=== PATIENT | female | born 1940 | race Caucasian/White ===

== ENCOUNTER 2019-02-16 11:24 | Inpatient (IN) ==
[2019-02-16] MEDS ORDERED: MORPHINE IV ONE ×2 (11:59→13:40)
[2019-02-16 12:44] LABS: BASO# 0.04 X1000 (0.0-0.2); BASO% 0.3 % (0.0-0.8); EOS# 0.16 X1000 (0.0-0.7); EOS% 1.3 % (0.0-10.0); HEMATOCRIT 39.4 % (37.0-47.0); HEMOGLOBIN 13.1 g/dL (12.0-16.0); IMM GRAN# 0.04 X1000 (0.0-0.04); IMM GRAN% 0.3 % (0.0-0.5); LYMPH# 1.28 X1000 (1.2-3.4); LYMPH% 10.4 % (20.5-51.1); MCH 29.8 PG (27-31); MCHC 33.2 g/dL (33-37); MCV 89.7 FL (81-99); MONO# 0.94 X1000 (0.11-0.59); MONO% 7.6 % (1.7-9.3); MPV 9.3 FL (7.4-10.4); NEUT# 9.83 X1000 (1.4-6.5); NEUT% 80.1 % (42.2-75.2); PLT 327 X1000 (130-400); RBC 4.39 XMIL (4.2-5.4); RDW 12.9 % (11.5-14.5); WBC 12.29 X1000 (4.8-10.8)
[2019-02-16 12:53] LABS: INR 0.95; PROTIME 13.4 Seconds (11.0-16.0); PTT 32.5 Seconds (22.3-41.8)
[2019-02-16 13:00] LABS: AGAP 13; ALB/GLOB RATIO 1.2; ALKALINE PHOSPHATASE 76 U/L (32-104); BUN 15 mg/dL (8-22); CALCIUM 8.9 mg/dL (8.8-10.2); CHLORIDE 102 mmol/L (98-107); COSMO 279; CREATININE 0.8 mg/dL (0.5-0.9); ESTIMATED GFR > 60; GLUCOSE 105 mg/dL (70-104); GOT 19 U/L (10-30); GPT 11 U/L (10-36); POTASSIUM 4.3 mmol/L (3.5-5.1); SODIUM 139 mmol/L (136-145); TCO2 24 mmol/L (25-35); TOTAL BILIRUBIN 0.73 mg/dL (0.20-1.00); TOTAL PROTEIN 7.3 g/dL (6.3-8.3)
--- NOTE | 2019-02-16 13:25 | Diag Imaging Result Doc PS360 ---
EXAM: CHEST-1 VIEW HISTORY: HIP FX TECHNIQUE: Chest single view COMPARISON: None. FINDINGS: The lungs are well expanded. Mild vascular distention. Mild cardiac prominence. There is a left-sided pacemaker. No pleural effusions identified. No consolidation. No pneumothorax. IMPRESSION: Mild vascular distention. Electronically signed by Nolan Bauer 02/16/2019 1:23 PM
--- NOTE | 2019-02-16 13:28 | Diag Imaging Result Doc PS360 ---
EXAM: HIP W/PELVIS BILAT 2 VIEWS HISTORY: fall, r leg shortened and externall rotated TECHNIQUE: Pelvis and bilateral hips, three views COMPARISON: None. FINDINGS: There is an intertrochanteric fracture to the right hip. Femoral head remains in the acetabulum. The femoral shaft is and superiorly placed and rotated. IMPRESSION: Intertrochanteric fracture to the right hip. Electronically signed by Nolan Bauer 02/16/2019 1:26 PM
--- NOTE | 2019-02-16 13:36 | Diag Imaging Result Doc PS360 ---
EXAM: CT HEAD W/O CONTRAST HISTORY: fall TECHNIQUE: Emergency CT head without contrast COMPARISON: 05/26/2018 FINDINGS: No parenchymal hemorrhage. No epidural or subdural hematoma. No subarachnoid hemorrhage. No mass identified on this noncontrasted exam. No hydrocephalus. No skull fracture. IMPRESSION: No hemorrhage. No injury. This exam was performed using automated exposure control, adjustment of mA or kV according to patient size, and/or use of iterative reconstruction technique. Electronically signed by Nolan Bauer 02/16/2019 1:33 PM
--- NOTE | 2019-02-16 13:43 | PROVIDER DOCUMENTATION ---
This chart was entered by Eve nAdrews Scribe, acting as scribe for Rusty Medrano MD. HPI-Musculoskeletal Pain/Inj - GENERAL Chief Complaint: Fall Stated Complaint: DIZZINESS/FALL Time Seen by Provider: 02/16/19 11:45 Source: patient - HX OF PRESENT ILLNESS-MUSKULOSKELTAL Nature of Presenting Problem: 78 y/o female presents to ED with R hip pain and R elbow pain onset just prior to arrival due to fall. Pt reports she got dizzy and fell from standing. Pt states she has hx vertigo. Pt denies loss of consciousness, but is unsure if she hit her head. Pt reports she cannot walk and cannot move her R hip. Pt is alert and oriented. Quality of Pain: reports: sharp Severity in ED: severe Onset/Duration: just prior to arrival Timing: still present Modifying Factors: worse with: movement, palpation Any recent injury?: Yes (fall) Locality of Occurance: Home Similar Symptoms Previously?: No Recently seen or treated by another doctor?: No - FALL INJURY Location of Pain/Injury: reports: upper extremity, lower extremity Pain Radiation: reports: no radiation Reason for Fall: reports: other (dizzy) Symptoms prior to fall:: reports: dizzy/lightheaded Loss of Consciousness: no loss of consciousness Injury Associated Symptoms: reports: dizziness, joint pain (R hip; R elbow), unable to bear weight, trouble walking, other (cannot move R hip) - HIP/PELVIS PAIN/INJURY Hip Pain Location: reports: hip (R) Pain Radiation: reports: no radiation Context / Method of Injury: reports: fall Associated Symptoms: reports: denies symptoms - LOWER EXTREMITY PAIN/INJURY Lower Extremities Pain: hip: right Context / Method of Injury: reports: fell Associated Symptoms: reports: denies symptoms - UPPER EXTREMITY PAIN/INJURY Extremities Pain Location: elbow: right Context / Method of Injury: reports: fell Associated Symptoms: reports: denies symptoms Review of Systems - Adult - REVIEW OF SYSTEMS - ADULT Constitutional: denies: chills, fever Eyes: reports: no symptoms reported Ears, Nose, Mouth & Throat: reports: no symptoms reported Cardiovascular: denies: chest pain, palpitations Respiratory: denies: cough, shortness of breath Gastrointestinal: denies: abdominal pain, diarrhea, nausea, vomiting Genitourinary: reports: no symptoms reported Musculoskeletal: reports: joint pain (R hip; R elbow), other (unable to walk/bear weight/move R hip). denies: back pain Integumentary: reports: no symptoms reported Neurological: reports: dizziness/vertigo. denies: seizure Psychiatric: reports: no symptoms reported Endocrine: reports: no symptoms reported Hematologic/Lymphatic: reports: no symptoms reported Allergic/Immunologic: reports: no symptoms reported All Other Systems: Reviewed and Negative Past History - Adult - PAST MEDICAL HISTORY-ADULT Review of Records: reports: Old Records Reviewed, Nursing Assessment Review, Medications Reviewed Major Childhood Illnesses: reports: denies history Cardiovascular: reports: HTN, pacemaker Respiratory: reports: denies history Gastrointestinal: reports: denies history Obstetrical/Gynecological: reports: denies history Genitourinary: reports: denies history Musculoskeletal: reports: denies history Neurological: reports: other (vertigo) Endocrine/Immune: reports: denies history Other Conditions: reports: denies history - PRIOR SURGERIES/PROCEDURES Surgical/Procedure History: reports: pacemaker, orthopedic (extremity) (leg), back/neck (kyphoplasty) - IMMUNIZATION STATUS Childhood Immunizations: See Nurse Assessment Flu Vaccine: See Nurse Assessment - FAMILY HISTORY Family History: reviewed, not pertinent - SOCIAL HISTORY Smoking: non-smoker Substance Use: none/never Alcohol Use Frequency: never Living Situation: family Physical Exam-Injury Related - Physical Exam-Injury Related Initial Vital Signs Reviewed: Yes General Appearance: appears well, alert, no apparent distress Eyes: PERRL/EOMI, pink conjunctivae Head, Ears, Nose, Mouth & Throat: normocephalic/atraumatic, moist mucous membranes, normal ENT inspection Neck: non-tender, full range of motion Respiratory: chest non-tender, lungs clear, normal breath sounds Cardiovascular: normal peripheral pulses, regular rate, rhythm Abdominal Exam: normal bowel sounds, non tender, soft Back Exam: normal inspection, no CVA tenderness Extremity: normal range of motion, normal gait, other (R elbow contusion; R leg shortened by 4 inches and externally rotated) Integumentary: normal color, warm/dry, contusion(s) (R elbow) Neurologic: grossly normal Psych/Mental Status: normal mood/affect, normal thought content, normal thought process Progress - PLAN OF CARE/RESULTS Progress/Plan/Lab Results: Vital Signs - 8 hr 02/16/19 11:49 Temperature 97.8 F Pulse Rate 60 Respiratory Rate 18 Blood Pressure 157/78 O2 Sat by Pulse Oximetry 97 Laboratory Results - last 24 hr 02/16/19 02/16/19 02/16/19 12:21 12:21 12:21 WBC 12.29 H RBC 4.39 Hgb 13.1 Hct 39.4 MCV 89.7 MCH 29.8 MCHC 33.2 RDW Std Deviation 12.9 Plt Count 327 MPV 9.3 Immature Gran % (Auto) 0.3 Neut % (Auto) 80.1 H Lymph % (Auto) 10.4 L [place] % (Auto) 7.6 Eos % (Auto) 1.3 Baso % (Auto) 0.3 Immature Gran # (Auto) 0.04 Neut # (Auto) 9.83 H Lymph # (Auto) 1.28 [place] # (Auto) 0.94 H Eos # (Auto) 0.16 Baso # (Auto) 0.04 PT INR PTT (Actin FS) Sodium 139 Potassium 4.3 Chloride 102 Carbon Dioxide 24 L Anion Gap 13 BUN 15 Creatinine 0.8 Estimated GFR/1.73 m2 > 60 BUN/Creatinine Ratio 19 Glucose 105 H Calculated Osmolality 279 Calcium 8.9 Total Bilirubin 0.73 AST 19 ALT 11 Alkaline Phosphatase 76 Creatine Kinase 255 H Troponin T Total Protein 7.3 Albumin 4.0 Globulin 3.3 Albumin/Globulin Ratio 1.2 Blood Type Antibody Screen 02/16/19 02/16/19 02/16/19 12:21 12:21 12:21 WBC RBC Hgb Hct MCV MCH MCHC RDW Std Deviation Plt Count MPV Immature Gran % (Auto) Neut % (Auto) Lymph % (Auto) [place] % (Auto) Eos % (Auto) Baso % (Auto) Immature Gran # (Auto) Neut # (Auto) Lymph # (Auto) [place] # (Auto) Eos # (Auto) Baso # (Auto) PT 13.4 INR 0.95 PTT (Actin FS) 32.5 Sodium Potassium Chloride Carbon Dioxide Anion Gap BUN Creatinine Estimated GFR/1.73 m2 BUN/Creatinine Ratio Glucose Calculated Osmolality Calcium Total Bilirubin AST ALT Alkaline Phosphatase Creatine Kinase Troponin T 0.089 Total Protein Albumin Globulin Albumin/Globulin Ratio Blood Type B POSITIVE Antibody Screen NEGATIVE Orders Category Date Time Status Saline Loc NOW Care 02/16/19 11:59 Active CHEST-1 VIEW [RAD] Stat Exams 02/16/19 12:[address] HEAD W/O CONTRAST [CT] Stat Exams 02/16/19 11:55 Completed ELBOW 2 VIEWS RIGHT [RAD] Stat Exams 02/16/19 13:31 Ordered HIP W/PELVIS BILAT 2 VIEWS [RAD] Urgent Exams 02/16/19 11:55 Completed CBC WITH DIFF [HEME] Stat Lab 02/16/19 12:21 Completed CK PROFILE [SP CHEM] Stat Lab 02/16/19 12:21 Results COMPREHENSIVE METABOLIC PANEL [CHEM] Stat Lab 02/16/19 12:21 Completed PROTIME WITH INR [COAG] Stat Lab 02/16/19 12:21 Completed PTT [COAG] Stat Lab 02/16/19 12:21 Completed TROPONIN T Stat Lab 02/16/19 12:21 Completed TYPE & SCREEN [BBK] Stat Lab 02/16/19 12:21 Completed URINALYSIS W/POSS RFLX CULT [URINALYSIS] Stat Lab 02/16/19 13:01 Ordered Morphine Med 02/16/19 11:59 Discontinued 4 mg IV NOW ONE Morphine Med 02/16/19 13:40 Once 4 mg IV NOW ONE EKG [EKG] Stat Ther 02/16/19 11:55 Ordered A/P: Intertrotranteric fracture Right side. Dr Salinas will see im am, admit to hospitalist/ vitals stable. Result Diagrams: 02/16/19 12:21 02/16/19 12:21 - XRAY 1 XRAY: Right XRAY Study: Pelvis, Hip Impression: Abnormal (FINDINGS: There is an intertrochanteric fracture to the right hip. Femoral head remains in the acetabulum. The femoral shaft is and superiorly placed and rotated. IMPRESSION: Intertrochanteric fracture to the right hip. Electronically signed by Nolan Bauer 02/16/2019 1:26 PM) 2 XRAY Study: Chest Impression: Abnormal (FINDINGS: The lungs are well expanded. Mild vascular distention. Mild cardiac prominence. There is a left-sided pacemaker. No pleural effusions identified. No consolidation. No pneumothorax. IMPRESSION: Mild vascular distention. Electronically signed by Nolan Bauer 02/16/2019 1:23 PM) - CONSULTS/PCP/HOSPITALIST Notification #1 *Consult/PCP/Hospitalist*: rheil Time Discussed: 13:42 Consult Disposition: Admit (will see im am) #2 Consult: Reinaldo Time Discussed: 13:42 Consult Disposition: Admit Departure - Departure Date of Disposition Decision: 02/16/19 Time of Disposition Decision: 13:42 DIAGNOSIS: Intertrochanteric fracture of right femur Disposition: ADMITTED INPATIENT 09 Certified Medical Emergency: Emergent Condition: Stable Additional Freetext Instructions: We have examined and treated you today on an emergency basis only. This was not a substitute for, or an effort to provide, complete medical care. In most cases, you must let your doctor check you again. Tell your doctor about any new or lasting problems. We cannot recognize and treat all injuries or illnesses in one Emergency Department visit. If you had special tests, such as X-rays or CT scans, will be reviewed by radiologist and will call you if there are any new suggestions Follow up with primary care provider in 1 to 2 days if no improvement. If you do not have a primary care provider, you need to choose one as soon as possible. Take medicines as prescribed. Monitor for any side effects or adverse events from medications. If any side effect, adverse event or rash develops, or if you suspect any other adverse reaction to the medication, then discontinue the medication immediately and contact clinic /PCP or go to the nearest ER. Narcotic meds / sedative meds instruction - patent advised not to drive, operate any machinery or go into water after taking meds as it may impair mental ability to react to the situation in an appropriate manner. Continue other current medicines. Follow up with PCP within 24-48 hours, or sooner if symptoms worsen or fail to improve. Patient / guardian verbalizes understanding of treatment plan, medication, and side effects and agrees with treatment plan. Patient leaves ER in stable condition and ambulatory state. Return to ER as needed. Discharge instructions reviewed verbally and given to patient in written form. Follow up with primary care provider. Referrals and Follow-Ups: Mundo Oleary MD [Primary Care Provider] - - Critical Care Note This patient required my direct & personal management of CC.: No Attestation - Physician/ TRAVON Attestation Patient care was provided by Advanced Practice Provider:: No The physician spent face to face time with patient:: Yes Advanced Practice Provider documentation review:: Supervising physician onsite and consulted in the evaluation and care of this patient. The physician did have a face to face encounter with the patient. This chart was documented by the indicated scribe, (Eve Andrews, Radha) and accurately reflects the services I performed and decisions made by me, Rusty Medrano MD, as attested by the provider's signature.
--- NOTE | 2019-02-16 13:50 | Diag Imaging Result Doc PS360 ---
EXAM: ELBOW 2 VIEWS RIGHT HISTORY: fall TECHNIQUE: Right elbow, two views COMPARISON: None. FINDINGS: No fracture. No dislocation. IMPRESSION: No acute bony injury. Electronically signed by Nolan Bauer 02/16/2019 1:48 PM
[2019-02-16] MEDS ORDERED: TYLENOL PO PRN (13:53)
[2019-02-16 13:56] LABS: URINE SOURCE CATH
[2019-02-16 14:00] LABS: CK-MB 7.56 ng/mL (0.0-5.0)
[2019-02-16] MEDS ORDERED: NS 1,000 ML IV SCH ×2 (14:00→15:19)
[2019-02-16 14:01] LABS: BILIRUBIN URINE NEGATIVE (NEGATIVE); BLOOD URINE NEGATIVE (NEGATIVE); COLOR YELLOW; GLUCOSE URINE NEGATIVE (NEGATIVE); KETONE URINE NEGATIVE (NEGATIVE); LEUKOCYTES URINE NEGATIVE (NEGATIVE); NITRITE URINE NEGATIVE (NEGATIVE); PH URINE 7.5; PROTEIN URINE NEGATIVE (NEGATIVE); SP GRAVITY URINE 1.011; TURBIDITY URINE CLEAR (CLEAR); UROBILINOGEN URINE NORMAL (NORMAL)
[2019-02-16 14:02] LABS: UR EPITHELIAL CELLS <10 /HPF (<10); URINE BACTERIA NEGATIVE /HPF; URINE RBC <10 /HPF (<10); URINE WBC <10 /HPF (<10)
--- NOTE | 2019-02-16 15:03 | ED EKG INTERP ---
This chart was entered by Eve Andrews Scribe, acting as scribe for Bijan Larson MD. EKG Interpretation - EKG Time of EKG reading by physician:: 14:53 EKG Read and Signed by:: Bijan Larson EKG Interpretation (*Must complete 3 of following elements*): Abnormal Rate: 72 Rhythm: NSR [place]: left QRS: LVH (with QRS widening), other (possible lateral infarct; inferior infarct) AK Interval: normal ST Wave: normal Attestation - Physician/ TRAVON Attestation Patient care was provided by Advanced Practice Provider:: No The physician spent face to face time with patient:: Yes Advanced Practice Provider documentation review:: Supervising physician onsite and consulted in the evaluation and care of this patient. The physician did have a face to face encounter with the patient. This chart was documented by the indicated scribe, (Eve Andrews Scribe) and accurately reflects the services I performed and decisions made by me, Bijan Larson MD, as attested by the provider's signature.
--- NOTE | 2019-02-16 16:39 | HISTORY AND PHYSICAL ---
PRESENTING COMPLAINT: Fall with pain to right hip. HISTORY OF PRESENTING COMPLAINT: Ms. Mattson is a 78-year-old female with a past medical history of hypertension, congestive heart failure with ejection fraction of 30% as per the patient and the family members, tachyarrhythmia status post pacemaker implantation. The patient refers to have been in her usual state of health until early this morning. She got up to go and do something in the kitchen, and she just felt dizzy, lost her balance, and fell down and sustained a hit to the right hip. She could not immediately get up off the floor. She was down there for a couple of minutes until the family members came and saw her on the floor. They called the ambulance, and she was brought into the emergency room where she was evaluated. Initial x-ray of the hip and pelvis showed an intertrochanteric fracture to the right hip. The patient is being admitted for evaluation and intervention by Orthopedics. PAST MEDICAL HISTORY: 1. Hypertension. 2. Congestive heart failure with ejection fraction of 30%. 3. Tachyarrhythmia. The patient is status post pacemaker. 4. Osteoarthritis. 5. GERD. 6. Recurrent episode of vertigo. MEDICATIONS: 1. Aspirin 81 mg. 2. Carvedilol 12.5 b.i.d. 3. Famotidine 40 mg p.o. daily. 4. Lisinopril 5 mg p.o. daily. However, Ms Mattson refers that she had stopped taking lisinopril for the past 1 week. 5. Meclizine 25 mg p.o. daily p.r.n. 6. CoQ10, 200 mg daily. 7. Celexa 20 mg p.o. daily. ALLERGIES: Sulfa medications. PAST SURGICAL HISTORY: 1. Appendectomy. 2. Back surgery. 3. Right distal femur surgery. 4. Pacemaker implant. SOCIAL HISTORY: Patient is currently . Lives with her who has advanced Parkinson disease and is bedbound. Ms. Mattson is the one who provides for her . Ms. Mattson is for most part very active. She does all her ADLs by herself. She denies any alcohol use and no tobacco product use. REVIEW OF SYSTEMS: A 14-point review of system conducted with Ms. Mattson is unremarkable except what we have in the HPI. Specifically, Ms. Mattson denies any chest pain. No shortness of breath. No abdominal pain. No diarrhea. No headaches. PHYSICAL EXAMINATION: VITAL SIGNS: The patient blood pressure 157/94, pulse is 64, respirations 18, temperature is 97.6 degrees. Patient is saturating 98% on 2 L of nasal cannula. GENERAL: Ms. Mattson is a 78-year-old, well-built, female. BMI is 39.3. She was in bed. She was not in any cardiopulmonary distress. HEENT: Mucosa is slightly dry. Anicteric. Acyanotic. Head is normocephalic, atraumatic. NECK: Supple. There was no JVD. Trachea is midline. There is no thyromegaly. RESPIRATORY: There is good air entry bilateral. No crepitations. No rhonchi. No accessory muscle use. CARDIOVASCULAR: Regular rate and rhythm. No murmurs, no rubs, no gallops. Maiden beat is at 5th intercostal space, midclavicular line. There is a pacemaker generator pocket on the left anterior chest wall. GI: Abdomen is soft, nontender. Bowel sounds present. No hepatosplenomegaly palpated. INGUINAL REGION: Unremarkable. : Unremarkable. EXTREMITIES: There is no pedal edema. Distal pulses are present bilaterally. The right lower extremity is shortened, and it is externally rotated. ORDER ENTRY ADMINISTRATOR: Patient is awake, alert, and oriented x4. Executive function seems to be for the most part unremarkable for her age. Motor is 5/5 in all extremities except the right lower extremity; patient is able to move the toes but not able to lift the lower extremity itself because of the fracture. Sensation is intact in all extremities. Reflexes are normal. PSYCHIATRIC: Ms. Mattson is very cooperative with during the encounter. She has very good understanding and good judgment. LABORATORY DATA: WBC is 12.29, hemoglobin is 13.1, platelet count of 337,000. Chemistry is also reviewed and is completely unremarkable. Urinalysis is also normal. IMAGING STUDIES: A CT scan of the head showed no hemorrhage, no injury. A hip pelvic x-ray shows intertrochanteric fracture to the right hip. A chest x-ray shows mild vascular distention. No pneumothorax. No other abnormality. An elbow x-ray shows no abnormality. An EKG shows normal sinus rhythm with a rate of about 75. There is left axis deviation. There is a ventricular paced rhythm noted. In general, Ms. Mattson is a 78-year-old, relatively healthy lady with some chronic comorbidities who seems to have been in her regular state of health. She sustained a mechanical fall and has a fracture to the right hip. She has been admitted for orthopedic evaluation and intervention at this time. ASSESSMENT: 1. Status post mechanical fall resulting into a right intertrochanteric displaced fracture. The patient will be evaluated by orthopedics today. I understand there is a plan for surgical intervention tomorrow. 2. History of congestive heart failure. The patient refers that her ejection fraction is about 30%. We do not have any previous documentation in our system. She normally follows up with Cardiology in [place]. The patient at this point denies any symptoms associated with congestive heart failure. We will, however, recommend that the patient is seen by Cardiology before surgery because of her risks. 3. History of atrial fibrillation currently rate controlled. The patient is status post pacemaker, and she is also on carvedilol. 4. Hypertension is controlled. 5. Mild clinical volume depletion. Patient is on gentle hydration. 6. Severe constipation on imaging studies. We will start the patient on bowel regimen. PLAN: 1. So in general, I think Ms. mattson is clinically stable. We are going to admit her onto the surgical floor under telemonitoring. Orthopedics have already been consulted. We will also consult Cardiology for perioperative cardiac evaluation because of the fact that she has ejection fraction of 30%, and she also has a pacemaker. 2. I have also discussed the possibility of rehab placement after the surgical intervention. I have discussed my plan with the 3 family members who were at the bedside at the time of the encounter and also with the patient. All of them are in agreement. cc: Dean Atkins MD
[2019-02-16] MEDS: ZOFRAN IV PRN ×2 (17:29→20:13)
[2019-02-16] MEDS: MORPHINE IV PRN ×3 (17:30→23:18)
[2019-02-16] MEDS: MIRALAX PO SCH (17:45)
[2019-02-16] MEDS: NORCO-7.5 PO PRN (21:08)
[2019-02-16 22:16] LABS: URINE SOURCE CATH
[2019-02-16 22:22] LABS: BILIRUBIN URINE NEGATIVE (NEGATIVE); BLOOD URINE MODERATE (NEGATIVE); COLOR YELLOW; GLUCOSE URINE NEGATIVE (NEGATIVE); KETONE URINE 40 mg/dL (NEGATIVE); LEUKOCYTES URINE NEGATIVE (NEGATIVE); NITRITE URINE NEGATIVE (NEGATIVE); PH URINE 5.5; PROTEIN URINE TRACE mg/dL (NEGATIVE); TURBIDITY URINE CLEAR (CLEAR); UROBILINOGEN URINE NORMAL (NORMAL)
[2019-02-16 22:24] LABS: UR EPITHELIAL CELLS <10 /HPF (<10); URINE BACTERIA NEGATIVE /HPF; URINE WBC <10 /HPF (<10)
[2019-02-17] MEDS: NORCO-7.5 PO PRN ×2 (01:01→04:29)
[2019-02-17] MEDS: MORPHINE IV PRN (02:05)
[2019-02-17 05:55] LABS: BASO# 0.02 X1000 (0.0-0.2); BASO% 0.2 % (0.0-0.8); EOS# 0.17 X1000 (0.0-0.7); EOS% 1.9 % (0.0-10.0); HEMATOCRIT 35.8 % (37.0-47.0); HEMOGLOBIN 11.7 g/dL (12.0-16.0); LYMPH# 1.82 X1000 (1.2-3.4); LYMPH% 20.4 % (20.5-51.1); MCH 29.8 PG (27-31); MCHC 32.7 g/dL (33-37); MCV 91.3 FL (81-99); MONO# 1.33 X1000 (0.11-0.59); MONO% 14.9 % (1.7-9.3); MPV 9.2 FL (7.4-10.4); NEUT# 5.59 X1000 (1.4-6.5); NEUT% 62.6 % (42.2-75.2); PLT 292 X1000 (130-400); RBC 3.92 XMIL (4.2-5.4); RDW 13.1 % (11.5-14.5); WBC 8.93 X1000 (4.8-10.8)
[2019-02-17 06:13] LABS: INR 1.09
[2019-02-17 06:14] LABS: PTT 36.2 Seconds (22.3-41.8)
[2019-02-17 06:23] LABS: AGAP 10; ALB/GLOB RATIO 1.3; ALBUMIN 3.6 g/dL (3.5-5.0); ALKALINE PHOSPHATASE 68 U/L (32-104); BUN 15 mg/dL (8-22); CALCIUM 8.5 mg/dL (8.8-10.2); CHLORIDE 103 mmol/L (98-107); COSMO 279; CREATININE 0.7 mg/dL (0.5-0.9); ESTIMATED GFR > 60; GLUCOSE 102 mg/dL (70-104); GOT 25 U/L (10-30); GPT 9 U/L (10-36); POTASSIUM 3.8 mmol/L (3.5-5.1); SODIUM 139 mmol/L (136-145); TCO2 26 mmol/L (25-35); TOTAL BILIRUBIN 1.02 mg/dL (0.20-1.00); TOTAL PROTEIN 6.4 g/dL (6.3-8.3)
[2019-02-17] MEDS: ZOFRAN IV PRN (08:55)
[2019-02-17] MEDS: MIRALAX PO SCH (08:55)
--- NOTE | 2019-02-17 09:31 | ORTHOPAEDICS CONSULTATION ---
DATE: 02/17/2019 CHIEF COMPLAINT: Right hip pain. HISTORY OF PRESENT ILLNESS: This is a 78-year-old female, household ambulator with history of coronary disease and a pacemaker. Reports a fall yesterday at home. She was evaluated in the emergency room and noted to have a right intertrochanteric hip fracture. She was admitted by the hospitalist service for surgical intervention and clearance. She complains of pain and tenderness about the right hip. She denies any other injury. PAST MEDICAL HISTORY: Significant for heart failure with ejection fraction of 30, arrhythmia with a pacemaker, osteoarthritis, reflux, vertigo and hypertension. CURRENT MEDICATIONS: Include 1. Aspirin. 2. Carvedilol. 3. Famotidine. 4. Lisinopril. 5. Meclizine. 6. Celexa. 7. Co Q. PAST SURGICAL HISTORY: is status post surgery to the right femur in the past, as well as a pacemaker implant, back surgery and appendectomy. SOCIAL HISTORY: Is , resides with who has advanced Parkinson's and is bedbound. She is at best a household ambulator, is unsteady with her gait. She has a daughter in attendance. PHYSICAL EXAMINATION: Reveals shortening of external rotation of the right lower extremity with tenderness about the hip. Compartments are soft. She appears to be motor and sensory intact. There is good capillary refill. She is nontender over the left lower extremity and both upper extremities. Spine has some diffuse tenderness but no point tenderness. IMAGING: X-rays reviewed show a displaced intertrochanteric right hip fracture. ASSESSMENT: 1. Right intertrochanteric hip fracture. 2. Multiple medical comorbidities. PLAN: The patient is to be evaluated by Cardiology prior to surgery. We will plan on proceeding with her surgery tomorrow pending cardiology clearance. She can eat today. I have discussed risks and benefits of surgery including loss of life or limb, damage to tendon, nerve, or blood vessel, failure of fixation, blood clots, and other imponderables. She understands. No guarantees, is willing to proceed. We will plan on surgical fixation of her right hip tomorrow. cc: Issa Palomo MD
[2019-02-17 09:37] LABS: CK INDEX 1.9 (0.0-2.5); CK-MB 8.61 ng/mL (0.0-5.0)
--- NOTE | 2019-02-17 10:04 | CARDIOLOGY CONSULTATION ---
DATE: 02/17/2019 CONSULTATION REQUESTED BY: Hospitalist service. REASON FOR CONSULTATION: Preoperative cardiac evaluation.history of CHF. BRIEF HISTORY: Ms. Mattson is a 78-year-old female who presented to the hospital yesterday at about 1155 in the morning. The patient apparently had been feeling dizzy at home and as she made a turn while standing to try to turn off a light switch. She just lost her balance and fell on her buttocks. Her daughter, who had been out to breakfast with her children, found her lying on the floor. The patient had not lost consciousness. She did not have any chest pain or dyspnea before or after the episode. When they brought her to the ER, they did an x-ray that showed intertrochanteric fracture of the right hip. The patient has been scheduled for hip surgery emergently. Her EKG shows activity of a biventricular pacemaker with atrial sensing. The rate is 72 beats per minute. No ischemic ST changes noted. Initial CPK is elevated at 255. CK index is 3%. MB fraction is 7.56. Troponin is 0.089. This probably reflects the musculoskeletal trauma of the fall. Her urinalysis shows moderate blood in the urine. Her BUN and creatinine were normal. Her chest x-ray shows clear lungs with some vascular distention. PAST HISTORY: Positive for nonischemic dilated cardiomyopathy. The patient has received a biventricular ICD device. She has hypertension. She has mild to moderate mitral regurgitation. She has dyslipidemia. The patient has undergone heart catheterization in the past, 03/06/2017, that showed normal coronaries. Her pulmonary pressure was basically normal. The patient had an echocardiogram on follow-up in September 2017 that revealed ejection fraction of 50%. SURGICAL HISTORY: Positive for implantation of biventricular device in 07/30/2017 for primary prevention. It is [employer] [id number]. This is a [employer] device. Her surgical history is positive for kyphoplasty and also for leg surgery, appendectomy. SOCIAL HISTORY: She lives with who is bedbound because of advanced Parkinson disease. They have around the clock sitters. However, on the day of the accident, no sitter was around. Her history negative for smoking or alcohol use. HOME MEDICATIONS: Aspirin 81 daily, calcium acetate 3 tablets daily, Coreg 12.5 twice a day, Celexa 20 mg daily, cyclobenzaprine 10 mg daily, famotidine 40 mg at bedtime, glucosamine 1 tablet at bedtime, lisinopril 10 mg daily, meclizine 12.5 two times a day, Co Q10 200 daily, glucosamine daily. ALLERGIES: Sulfa drugs. REVIEW OF SYSTEMS: The patient has a tendency to fall. Her children said that she had fallen before Mother's Day, which is about 2 weeks ago. She has episodes of dizziness. No chest pains. No issues with cardiopulmonary system otherwise. No previous strokes. No psychiatric history. No hematological disorder. No gastrointestinal problems. No genitourinary issues. No skin issues. No immunological disorder. No active cancer. Family History : non contributory. PHYSICAL EXAMINATION: Vitals: Blood pressure is 90/52, temperature 97.6 degrees, pulse 72, respirations 12. General: She is awake, alert. She is sedated because of her fracture. They have been giving her morphine. HEENT: Unremarkable. Chest: Clear to auscultation and percussion. Heart: Heart sounds regular and rhythmic. I do not hear any definite gallop or murmur. Abdomen: Obese, nontender. Extremities: Showed good pulses. No peripheral edema. There is a deformity in the position of the right leg because of the fracture. Neurologic: She follows commands. Moves 4 extremities. BLOOD WORK: Hemoglobin is 11.7, hematocrit 35.8, white cell count 8930. PT/INR is normal. Albumin is 3.6. IMPRESSION: 1. Patient who presented with a fall and a broken right hip. 2. Patient who has a nonischemic dilated cardiomyopathy. She is status post biventricular AICD."Stable" chronic systolic heart failure. s/p Implantation of Biventricular ICD. 3. History of hypertension. 4. Dizziness, tendency to fall, poor balance. RECOMMENDATIONS: At this time from Cardiology, I really do not find any contraindication to proceeding with hip surgery. She has no coronary disease. She may have some chronic congestive heart failure, which is probably compensated. I am going to check a pro BNP level and serial cardiac enzymes as well as serial EKGs. We have just repeated the EKG this morning at 9:28 in the morning and it shows no changes when compared to the one from yesterday at 2:53 in the afternoon. At this time, I think she is safe to proceed with the hip surgery, and I will be around to intervene should her condition change. cc: Yovanny Cloud MD MTDD
[2019-02-17] MEDS ORDERED: FLEXERIL PO PRN (10:14)
[2019-02-17] MEDS ORDERED: PEPCID PO PRN (10:14)
[2019-02-17] MEDS ORDERED: AMIDATE ONE (10:18)
[2019-02-17] MEDS ORDERED: XYLOCAINE-MPF 2% ONE (10:19)
[2019-02-17] MEDS ORDERED: NEOSPORIN G.U. IRRIGANT ONE (10:29)
[2019-02-17] MEDS ORDERED: KEFZOL 1 GM/D5W 2 GM/100 ML IVPB ONE (10:29)
[2019-02-17] MEDS ORDERED: QUELICIN (DOSE) ONE (11:06)
[2019-02-17] MEDS ORDERED: EPHEDRINE ONE (11:08)
[2019-02-17] MEDS ORDERED: ZOFRAN ONE (11:31)
[2019-02-17] MEDS ORDERED: DECADRON ONE (11:31)
[2019-02-17] MEDS ORDERED: NS 1,000 ML ONE (12:00)
[2019-02-17] MEDS: DILAUDID ONE ×2 (12:00→12:06)
[2019-02-17] MEDS: TORADOL ONE (12:17)
[2019-02-17] MEDS: OFIRMEV 1000 MG/ISOTONIC SOLN 1,000 MG/100 ML BOTTLE ONE ×2 (12:20→13:07)
[2019-02-17] MEDS ORDERED: ZOFRAN IV PRN (12:21)
[2019-02-17] MEDS ORDERED: MORPHINE IV PRN (12:21)
[2019-02-17] MEDS ORDERED: MILK OF MAGNESIA PO PRN (12:21)
[2019-02-17] MEDS ORDERED: HALDOL IV PRN (12:30)
[2019-02-17] MEDS: NS 1,000 ML IV SCH ×2 (13:00→20:32)
--- NOTE | 2019-02-17 13:02 | OPERATIVE NOTE ---
PROCEDURE DATE: 02/17/2019 PREOPERATIVE DIAGNOSIS: Right intertrochanteric hip fracture. POSTOPERATIVE DIAGNOSIS: Right intertrochanteric hip fracture. PROCEDURE PERFORMED: Trochanteric fixation nail fixation of right hip. SURGEON: Yulissa Palomo MD. SHEET METAL PRODUCTION WORKER: None. ANESTHESIA: General. COMPLICATIONS: None. DESCRIPTION OF PROCEDURE IN DETAIL: A 78-year-old who presents for surgical stabilization of a right intertrochanteric hip fracture. Risks, benefits, and no guarantees were discussed, and she is willing to proceed. She was taken to the operating room and satisfactory anesthesia obtained. The right hip was prepped and draped in the usual sterile fashion. A time-out was taken to confirm operative site, procedure, and patient. Eve table was used to provide gentle longitudinal traction, alignment of the fracture. A lateral incision was made after a prep and drape above the lesser trochanter and a guide pin placed down through the tip of the trochanter down the intramedullary canal. An intramedullary reamer was used to establish a portal and the guidewire removed. A ball-tipped guidewire advanced down the shaft of the femur. A 340 x 11 nail was selected. The guidewire was reamed with a 12 mm reamer. The nail was then inserted over the guidewire and fully seated, and the guidewire removed. An accessory lateral guide was used to place a guide pin through the nail through an accessory lateral incision and up the central aspect of the femoral neck and femoral head. A 105 length helical blade was passed over this guidewire after reaming. This was locked in place and the proximal guide removed. The C-arm was used to verify accurate proximal alignment and surgical fixation. The distal screw was placed through the dynamic slot using the C-arm guidance through an accessory lateral portal. A 44 length screw was placed across the nail and bone with bicortical fixation. Care was taken to maintain proper rotation and leg length during the fixation. Afterwards, all wounds were irrigated and closed in layers with 2-0 Vicryl and andrea. Sterile dressings were applied. She was recovered from anesthesia and transferred to the recovery room in stable condition. No intraoperative complications were noted. Instrument count and sponge count were correct at the time of closure. cc: Issa Palomo MD
--- NOTE | 2019-02-17 15:51 | PROGRESS NOTE ---
DATE: 02/17/2019 SUBJECTIVE: Patient has no major complaints. OBJECTIVE: Blood pressure 90/53, heart rate 88, respiratory rate 16, temperature 98.1 degrees, and 96% on 2 L.Cardiovascular: Regular rate and rhythm. Pulmonary: Bilateral breath sounds clear to auscultation. GI: Soft, nontender, and nondistended. Bowel sounds are positive. LABORATORY DATA: White count 8.9, hemoglobin and hematocrit 11 and 35, and platelets 292,000. Creatinine was okay. Troponin though not quite sure when this was done, was slightly elevated. I guess they got one done yesterday, and then the one done this morning preop was 0.102. I did not get reported on it until around 15:00 which is after her surgery. In any case, the EKG was unremarkable. She is asymptomatic. PROBLEM LIST: 1. Right hip fracture intertrochanteric displaced fracture. She is status post ORIF. Cardiology was consulted for preop clearance which has transpired. 2. Atrial fibrillation is stable. 3. Elevated troponin of undetermined significance. She has already had surgery, so I am not quite sure how much that is going to affect things, but Cardiology is following and they will have to re-evaluate. I did repeat her level. I requested an echo tomorrow just to ensure there has not been any big change in her cardiac function. I do not see that she has had a recent echo, at least not here. 4. Disposition: She will likely need rehab when she has stabilized. cc: Surendra Hunt MD
[2019-02-17] MEDS: OXY IR PO PRN ×2 (16:26→20:33)
[2019-02-17 16:34] LABS: CK INDEX 2.1 (0.0-2.5); CK-MB 15.76 ng/mL (0.0-5.0)
[2019-02-17] MEDS: KEFZOL 1 GM/D5W 1 GM/50 ML IVPB IV SCH ×2 (17:25→18:24)
[2019-02-17] MEDS: COLACE PO SCH (20:30)
[2019-02-17] MEDS: TYLENOL PO SCH (20:33)
[2019-02-17] MEDS: COREG PO SCH (20:34)
[2019-02-17] MEDS ORDERED: BENADRYL CREAM TOP PRN (22:01)
[2019-02-18] MEDS: GLUCOSAMINE 500 MG/CHONDROITIN 400 MG PO SCH ×2 (00:24→20:13)
[2019-02-18] MEDS: KEFZOL 1 GM/D5W 1 GM/50 ML IVPB IV SCH ×2 (02:36→11:55)
[2019-02-18] MEDS: OXY IR PO PRN ×3 (02:42→23:09)
[2019-02-18] MEDS: TYLENOL PO SCH ×3 (06:16→23:10)
[2019-02-18] MEDS: XARELTO PO SCH (06:16)
[2019-02-18 06:20] LABS: BASO# 0.01 X1000 (0.0-0.2); BASO% 0.1 % (0.0-0.8); EOS# 0.02 X1000 (0.0-0.7); EOS% 0.2 % (0.0-10.0); HEMOGLOBIN 9.8 g/dL (12.0-16.0); IMM GRAN# 0.03 X1000 (0.0-0.04); IMM GRAN% 0.3 % (0.0-0.5); LYMPH# 0.82 X1000 (1.2-3.4); LYMPH% 7.7 % (20.5-51.1); MCH 29.2 PG (27-31); MCHC 31.6 g/dL (33-37); MCV 92.3 FL (81-99); MONO# 1.25 X1000 (0.11-0.59); MONO% 11.7 % (1.7-9.3); MPV 8.7 FL (7.4-10.4); NEUT# 8.55 X1000 (1.4-6.5); PLT 233 X1000 (130-400); RBC 3.36 XMIL (4.2-5.4); RDW 12.9 % (11.5-14.5); WBC 10.68 X1000 (4.8-10.8)
[2019-02-18 06:54] LABS: AGAP 10; BUN 20 mg/dL (8-22); CALCIUM 7.8 mg/dL (8.8-10.2); CHLORIDE 103 mmol/L (98-107); COSMO 279; CREATININE 0.8 mg/dL (0.5-0.9); ESTIMATED GFR > 60; GLUCOSE 120 mg/dL (70-104); POTASSIUM 4.3 mmol/L (3.5-5.1); SODIUM 138 mmol/L (136-145); TCO2 25 mmol/L (25-35)
--- NOTE | 2019-02-18 07:35 | EKG Report ---
Test Performed on : 02/17/2019 09:28:19 AM Test Reason : chest pain/elevated cardiac enzymes Blood Pressure : / mmHG Vent. Rate : 067 BPM Atrial Rate : 067 BPM P-R Int : 132 ms QRS Dur : 112 ms QT Int : 534 ms P-R-T Axes : 063 -62 -39 degrees QTc Int : 564 ms Normal sinus rhythm. Left axis deviation Moderate voltage criteria for LVH, may be normal variant Possible Lateral infarct (cited on or before 16-FEB-2019) Inferior infarct (cited on or before 16-FEB-2019) Prolonged QT Abnormal ECG When compared with ECG of 16-FEB-2019 17:10, (Unconfirmed) aberrant conduction. is no longer present Questionable change in initial forces of Lateral leads QT has lengthened Confirmed by Ramu YANEZ, Harrison Salomon ([id number]) on 02/18/2019 12:42:32 PM
--- NOTE | 2019-02-18 07:44 | EKG Report ---
Test Performed on : 02/16/2019 5:10:34 PM Test Reason : fall Blood Pressure : / mmHG Vent. Rate : 074 BPM Atrial Rate : 074 BPM P-R Int : 128 ms QRS Dur : 120 ms QT Int : 442 ms P-R-T Axes : 052 -61 065 degrees QTc Int : 490 ms Sinus rhythm. with premature atrial complexes. with aberrant conduction. Left axis deviation Left ventricular hypertrophy with QRS widening Possible Lateral infarct (cited on or before 16-FEB-2019) Inferior infarct (cited on or before 16-FEB-2019) Abnormal ECG When compared with ECG of 16-FEB-2019 14:53, (Unconfirmed) aberrant conduction. is now present Confirmed by Ramu YANEZ, Harrison Salomon ([id number]) on 02/18/2019 12:41:58 PM
--- NOTE | 2019-02-18 07:45 | EKG Report ---
Test Performed on : 02/16/2019 2:53:50 PM Test Reason : surg clearance Blood Pressure : / mmHG Vent. Rate : 072 BPM Atrial Rate : 072 BPM P-R Int : 130 ms QRS Dur : 118 ms QT Int : 438 ms P-R-T Axes : 061 -58 099 degrees QTc Int : 479 ms Normal sinus rhythm. Left axis deviation Left ventricular hypertrophy with QRS widening Possible Lateral infarct , age undetermined Inferior infarct , age undetermined Abnormal ECG When compared with ECG of 10-NOV-2017 11:13, [id number]-[id number] is no longer present Unconfirmed Result
[2019-02-18 07:53] LABS: CK INDEX 2.4 (0.0-2.5); CK-MB 15.64 ng/mL (0.0-5.0)
[2019-02-18] MEDS: NS 1,000 ML IV SCH (08:40)
[2019-02-18] MEDS: PRINIVIL PO SCH (08:44)
[2019-02-18] MEDS: FERROUS SULFATE PO SCH (08:44)
[2019-02-18] MEDS: COREG PO SCH ×2 (08:45→20:13)
[2019-02-18] MEDS: FLONASE NAS SCH (08:45)
[2019-02-18] MEDS: PHOSLO PO SCH (08:45)
[2019-02-18] MEDS: CELEXA PO SCH (08:46)
[2019-02-18] MEDS: COENZYME Q10 PO SCH (08:46)
[2019-02-18] MEDS: ASPIRIN PO SCH (08:46)
--- NOTE | 2019-02-18 08:49 | CARDIOLOGY PROGRESS NOTE ---
DATE: 02/18/2019 CHIEF COMPLAINT: Hip pain. SUBJECTIVE: Ms. Mattson underwent orthopedic surgery on February 17. Dr. Palomo performed a trochanteric fixation of the right hip. The patient is fully awake. She is actually talking on the cell phone with her sister. She has obviously postoperative pain but she denies having chest discomfort or shortness of breath. Her telemetry shows no arrhythmia. Her troponin level has been rechecked this morning and it has dropped to 0.047 which is falling now back into the normal range/dickinson zone. EKG done yesterday showed no acute changes and today is pending. VITAL SIGNS: Blood pressure 108/51, temperature 97.9 degrees, pulse 81, respirations 19. GENERAL: The patient is awake, alert, oriented. No distress. HEENT: Unremarkable. CHEST: Clear to auscultation and percussion. HEART: Sounds regular and rhythmic. I do not hear a gallop or murmur. ABDOMEN: Nontender. EXTREMITIES: Showed good pulses. No edema. NEUROLOGICAL: Follows commands. Moves 4 extremities. BLOOD WORK: From this morning, hemoglobin 9.8, hematocrit 31%. That has dropped 2 points since yesterday. Sodium 138, potassium 4.3, BUN 20, creatinine 0.8. CPK has dropped from 756 to 651. CKMB fraction is slightly drifting down to 15.64 ng/mL. IMPRESSION: 1. Patient who suffered a fall from essentially unsteadiness and dizziness, suffering fracture of the right hip. 2, Status post internal fixation of the right hip fracture postoperative day 1. 3. Dilated nonischemic cardiomyopathy. 4. Status post biventricular ICD implantation. 5. History of hypertension. RECOMMENDATIONS: At this point in time, patient is basically free of any acute cardiac problems. She may go on with her current therapy as outlined by Dr. Paul Lopez who is her swing tender. I understand she is going to be taken to rehabilitation for convalescence of her fracture. Her medications need to be gradually reinstated according to her blood pressure tolerance. She is supposed to be on lisinopril and beta blockers. They will be reinstated gradually as she progresses with her rehabilitation. I had a leila discussion with her and the daughter and told them that she is likely to have more falls in the future and she definitely needs to use a walker 100% of the time to prevent this or help preventing them. She says that she is going to remember that from now on. She will follow up with Dr. Lopez and her established doctors. cc: Yovanny Cloud MD
--- NOTE | 2019-02-18 10:04 | EKG Report ---
Test Performed on : 02/18/2019 09:32:13 AM Test Reason : abnormal cardiac enzymes Blood Pressure : / mmHG Vent. Rate : 088 BPM Atrial Rate : 088 BPM P-R Int : 122 ms QRS Dur : 120 ms QT Int : 414 ms P-R-T Axes : 037 -58 043 degrees QTc Int : 500 ms Sinus rhythm. with occasional premature ventricular complexes. Left axis deviation Left ventricular hypertrophy with QRS widening Possible Lateral infarct (cited on or before 16-FEB-2019) Inferior infarct (cited on or before 16-FEB-2019) Abnormal ECG When compared with ECG of 17-FEB-2019 09:28, (Unconfirmed) premature ventricular complexes. are now present T wave inversion no longer evident in Inferior leads QT has shortened Confirmed by Ramu YANEZ, Harrison Salomon ([id number]) on 02/18/2019 12:43:18 PM
[2019-02-18] MEDS: TORADOL ONE (11:45)
[2019-02-18] MEDS: MIRALAX PO SCH (11:46)
--- NOTE | 2019-02-18 15:08 | PROGRESS NOTE ---
DATE: 02/18/2019 SUBJECTIVE: This morning, Ms. Mattson refers to be doing fairly okay. Denies any new complaints. Still has some pain in the right hip. OBJECTIVE: Ms. Mattson is a 78-year-old female. She was in bed, no distress. Mucosa is pink and moist. Anicteric. Acyanotic. Her current vitals: Blood pressure is 102/59, pulse of 78, respirations 15, temperature 97.7 degrees. On general exam, Ms. Mattson's neck is supple. No JVD.Chest: Good air entry bilateral. There were no crepitations. No rhonchi. Cardiovascular: Regular rate and rhythm. There are no murmurs, no rubs, no gallops. There is a generator pocket on the left anterior chest wall. Gastrointestinal: Abdomen is soft, nontender. Bowel sounds are present. No hepatosplenomegaly. Extremities: No pedal edema. Distal pulses present. The right lower extremity is still externally rotated. There is a new surgical scar on the hip level, which is covered with sterile dressing. Central Nervous System: Patient is awake, alert. DIAGNOSTIC STUDIES: WBC 10.68, hemoglobin is 9.8, platelet count of 233,000. Chemistry is also reviewed and unremarkable. ASSESSMENT: 1. Status post mechanical fall resulting into a right intertrochanteric displaced fracture. Patient is status post trochanteric nail fixation of the right hip by Dr. Palomo. Today is day 1 postoperatively. Patient seems to be doing remarkably well. She was evaluated by Physical Therapy today. 2. History of congestive heart failure due to nonischemic cardiomyopathy with ejection fraction of 30%. The patient follows up with Dr. Paul Lopez in [place] and was seen over here by Dr. Cloud. The patient is currently asymptomatic. 3. Status post biventricular implantable cardioverter-defibrillator implantation. Noted. 4. Hypertension, controlled. 5. Constipation, improved. 6. Mild clinical volume depletion, improved. In general Ms. Mattson is day 1 postoperative. Seems to be doing fairly okay. Had physical therapy evaluation today. There is a plan for her to be discharged to rehabilitation. I think she has chosen [facility]. We will be waiting for manager social work arrangements to get her there. The patient has been evaluated by Cardiology today, as well, and no need for any acute intervention. cc: Dean Atkins MD
[2019-02-18] MEDS: DILAUDID ONE (17:25)
--- NOTE | 2019-02-18 18:30 | ORTHOPAEDICS PROGRESS NOTE ---
DATE: 02/18/2019 SUBJECTIVE DATA: Ms. Mattson is seen on postop day 1 of her right TFN placement. She reports she is doing well at this time. She has been walking on physical therapy. She reports her pain is a 3/10 at this time. OBJECTIVE DATA: There is good capillary refill on the right lower extremity. There is negative Homans sign. There is good sensation. The patient is able to flex her quadriceps muscles without difficulty. Vital signs are stable. ASSESSMENT: Right intertrochanteric hip fracture with trochanteric fixation nail placement. PLAN: We plan on checking on Ms. Mattson in the morning for a final time. She will likely be discharged to rehab per her request. She will need to have her andrea removed in 10 days. We will check back on her in the morning. Dictated by GE Enciso for Issa Palomo MD cc: GE Enciso MD
[2019-02-18] MEDS: COLACE PO SCH (20:12)
--- NOTE | 2019-02-18 23:47 | ECHO REPORT ---
ORDER DATE: 02/18/2019 MEASUREMENTS: Septal thickness 0.8, left ventricular internal diameter diastole 4.2, left atrium 4.0. SUMMARY: 1. Technically difficult study due to limited acoustic window quality. Intravenous echocardiogram contrast agent Optison was utilized to enhance endocardial definition. 2. The aortic valve is trileaflet and opens normally on 2-dimensional images. Peak gradient across the aortic valve is approximately 10 mmHg. Mitral and tricuspid valves are without evidence of structural abnormality while pulmonic valve is not well demonstrated. There is trace mitral regurgitation and trace tricuspid regurgitation. The aortic root is normal in size. 3. Normal left ventricular dimensions suggested. Estimated left ejection fraction appears to be at least 60%. No regional wall motion abnormality is evident. Left atrium, right atrium and right ventricle are normal in size with grossly preserved right ventricular systolic function. There appears to be a pacemaker lead in the right ventricle. 4. No pericardial effusion. 5. Inferior vena cava not well demonstrated. cc: MD Surendra Gonzales MD
[2019-02-19] MEDS: OXY IR PO PRN ×2 (05:28→12:38)
[2019-02-19] MEDS: XARELTO PO SCH (05:29)
[2019-02-19] MEDS: TYLENOL PO SCH ×2 (05:29→14:19)
--- NOTE | 2019-02-19 06:55 | EKG Report ---
Test Performed on : 02/19/2019 06:23:48 AM Test Reason : abnormal cardiac enzymes Blood Pressure : / mmHG Vent. Rate : 074 BPM Atrial Rate : 074 BPM P-R Int : 144 ms QRS Dur : 122 ms QT Int : 452 ms P-R-T Axes : 062 -67 058 degrees QTc Int : 501 ms Normal sinus rhythm. Left axis deviation Left ventricular hypertrophy with QRS widening Cannot rule out Septal infarct , age undetermined Lateral infarct (cited on or before 16-FEB-2019) Inferior infarct (cited on or before 16-FEB-2019) Abnormal ECG When compared with ECG of 18-FEB-2019 09:32, premature ventricular complexes. are no longer present Questionable change in initial forces of Lateral leads Questionable change in initial forces of Inferior leads Confirmed by Ramu YANEZ, Harrison Salomon ([id number]) on 02/20/2019 6:36:01 PM
[2019-02-19 07:21] LABS: HEMATOCRIT 25.2 % (37.0-47.0)
[2019-02-19] MEDS: NS 1,000 ML IV SCH (07:25)
--- NOTE | 2019-02-19 08:09 | ORTHOPAEDICS PROGRESS NOTE ---
DATE: 02/19/2019 Ms. Mattson is seen today status post TFN fixation of her hip fracture. Hematocrit is 25.2. However, she is minimally symptomatic. Vital signs are stable. She will be mobilized today. She can be transferred to rehab when a bed is available. We will need to follow up with her in roughly 2 to 3 weeks for staple removal and followup x-rays. She can return in the interim as needed. She needs to be partial weightbearing on the involved surgical leg. cc: Issa Paloom MD
--- NOTE | 2019-02-19 08:18 | CARDIOLOGY PROGRESS NOTE ---
DATE: 02/19/2019 CHIEF COMPLAINT: Pain in the hip. SUBJECTIVE: Mrs. Mattson is doing better. Pain in the hip is less. She has not had any issues overnight. monitoring tech indicates activity of a pacemaker. EKG done this morning 02/19 shows normal sinus rhythm with atrial sensing and biventricular pacemaker activity. There is a leftward axis and a sort of a right bundle branch block type of pattern, however, this is a biventricular pacemaker rhythm. OBJECTIVE: Temperature is 98.3, pulse 72, respirations 15, blood pressure 122/49. General: She is awake, alert, in no distress. HEENT: Unremarkable. Chest: Clear to auscultation and percussion. Heart: Sounds are regular and rhythmic. No gallop or murmur. Abdomen: Nontender. Extremities: Showed no obvious edema. Neurologic exam: Follows commands, moves all 4 extremities. BLOOD WORK: Laboratory work today, hemoglobin has been checked, it is a 8 g, hematocrit 25.2%. Echocardiogram done yesterday shows that her ejection fraction is normal at 60%. That indicates that her cardiomyopathy basically is well taken care of by the biventricular device. IMPRESSION: 1. Patient who fell, broke her hip, intertrochanteric fracture. She is on the second postoperative day following internal fixation. 2. History of a nonischemic dilated cardiomyopathy status post biventricular implantable cardioverter-defibrillator with excellent response. Her ejection fraction has normalized from 30% to 60%. 3. History of normal coronary arteries. 4. History of hypertension. RECOMMENDATIONS: At this time, Mrs. Mattson is stable from a cardiac viewpoint. She may be discharged or transferred to rehab at the discretion of the Orthopedic service. I would not make any changes to her cardiac medications. As I said, her cardiac status is optimal and she will follow electively with her regular men's basketball coach, Dr. Paul Lopez. At this time, will sign off. Thank again for the opportunity to participate in her evaluation. cc: Yovanny Cloud MD
[2019-02-19] MEDS: FERROUS SULFATE PO SCH (08:55)
[2019-02-19] MEDS: CELEXA PO SCH (08:56)
[2019-02-19] MEDS: COREG PO SCH (08:56)
[2019-02-19] MEDS: ASPIRIN PO SCH (08:56)
[2019-02-19] MEDS: FLONASE NAS SCH (08:57)
[2019-02-19] MEDS: COENZYME Q10 PO SCH (08:57)
[2019-02-19] MEDS: PHOSLO PO SCH (08:58)
[2019-02-19] MEDS: PRINIVIL PO SCH (08:58)
[2019-02-19] MEDS: MIRALAX PO SCH (08:58)
--- NOTE | 2019-02-19 10:59 | DISCHARGE SUMMARY ---
ADMISSION DATE: 02/16/2019 DISCHARGE DATE: 02/19/2019 ADMISSION DIAGNOSIS: 1. Status post mechanical fall with right intertrochanteric displaced hip fracture. 2. History of systolic heart failure with an ejection fraction of 30% as per patient. 3. History of atrial fibrillation rate-controlled status post pacemaker. 4. Hypertension. 5. Mild volume depletion. 6. Severe constipation. DISCHARGE DIAGNOSIS: 1. Status post mechanical fall with right intertrochanteric displaced hip fracture. 2. History of heart failure. Ejection fraction of 60% by echo during this hospitalization. 3. History of atrial fibrillation rate-controlled status post pacemaker. 4. Hypertension. 5. Mild volume depletion. 6. Severe constipation. CONSULTATIONS: Yovanny Cloud MD with Cardiology and Issa Palomo MD with Orthopedics. DIAGNOSTIC PROCEDURES AND FINDINGS: EKG 02/16/2019: Atrial-sensed ventricular paced rhythm, nonspecific ST and T abnormalities. Head CT 02/16/2019 negative. Hip/pelvic x- ray 02/16/2019: Intertrochanteric hip fracture to the right. Chest x-ray 02/16/2019: Mild vascular distention. Elbow x-ray 02/16/2019: No acute injury. Echocardiogram 02/18/2019: EF 60%, trace MR, trace TR. SURGICAL PROCEDURES: Trochanteric fixation nail fixation of right hip 02/17/[address] Palomo. HOSPITAL COURSE: Mrs. Mattson is a 78-year-old female with a history of reported congestive heart failure, EF 30%, tachyarrhythmia status post pacemaker, atrial fibrillation, and hypertension, who presented status post mechanical fall and subsequent right hip fracture. There was no loss of consciousness or head injury. She came to the ER and was evaluated. X-ray confirmed right hip fracture and her laboratory data was fairly unremarkable. We consulted Orthopedics and Cardiology, Cardiology was for cardiac clearance. Dr. Cloud did see her and felt she was stable for procedure. An echocardiogram was done interestingly, which showed an EF of 60%. She proceeded with nail fixation on 02/17/2019, surgery was without incident and was tolerated well by the patient. She did have a drop in her hemoglobin and hematocrit but this is felt to be dilutional and secondary to OR losses. Overall, her stay has been uncomplicated, and she has progressed well and is now stable for discharge to [facility]. DISCHARGE MEDICATIONS: Aspirin 81 mg daily, PhosLo 2001 mg p.o. daily, Coreg 12.5 mg p.o. daily, Celexa 20 mg daily, Flexeril 10 mg daily as needed, Benadryl cream topically as directed, Colace 200 mg p.o. at bedtime, Pepcid 40 mg daily as needed, iron sulfate 325 mg p.o. with breakfast, fluticasone 2 sprays nasally daily, glucosamine chondroitin 1 at bedtime, Prinivil 10 mg p.o. daily, Ldkw-ca-Wrtvvvme 30 mL p.o. daily as needed, Xarelto 10 mg every 24 hours, Coenzyme Q10. DISCHARGE DIET: Heart healthy. DISCHARGE ACTIVITY: Activity as tolerated under the recommendations of physical therapy. DISPOSITION AND OTHER DISCHARGE INSTRUCTIONS: The patient is discharged to [facility]. She is to continue treatment under the direction of [facility]. She is to continue all medications as directed, follow up with her lap checker, Dr. Lopez, and Dr. Palomo as directed. All questions answered. DISCHARGE TIME: Greater than 35 minutes. Dictated by GE Rodriguez for Dean Atkins MD cc: GE Rodriguez MD John R. Riehl, MD Luis N. Villanueva, MD I have seen and examined Ms Mattson today. She is doing well, still complains of some pain in right hip. She is day 3 post right hip ORIF after mechanical fall resulting into a right intertrochanteric hip fracture. She is been discharged today to rehab. Home medications have been reconciled. All discharge instructions have been discussed with Ms Mattson. I agree with the above discharge summary. [facility]
[2019-02-19 12:15] VITALS: BP 123/48
== END 2019-02-19 15:50 | DRG 481 ==
LOC: SUPCPDRO → ED 11:24 → EDIPHOLD 14:09 → SUATTDRO 14:09 → 4N 15:53
PROVIDERS: ATTEND Internal Medicine
CPT/HCPCS: 70450; 71010; 71045; 73070; 73521; 76000; 80048; 80053; 81001; 82550; 82553; 83735; 83880; 84484; 85014; 85018; 85025; 85610; 85730; 86850; 86900; 86901; 93005; 93010; 93306; 94761; 94762; 94799; 96361; 96374; 96376; 97110; 97162; 97530; 99285; A9270; C8929; J0131; J0330; J0690; J1100; J1170; J1885; J2270; J2405; J7030; Q9957

== ENCOUNTER 2019-05-17 11:15 | Inpatient (IN) ==
[2019-05-17] MEDS ORDERED: DILAUDID IV ONE ×2 (11:45→14:00)
--- NOTE | 2019-05-17 12:35 | Diag Imaging Result Doc PS360 ---
XRAY PELVIS W/HIP 2-3VW LT - 05/17/2019 INDICATION: fall/ L hip pain TECHNIQUE: Three views COMPARISON: 02/16/2019 FINDINGS: There is a displaced intertrochanteric right hip fracture with a femoral neck stabilization rossana. There is some new bone formation and bony bridging at the intertrochanteric fracture line. There is a new impacted comminuted displaced left intertrochanteric hip fracture. No dislocation. IMPRESSION: Acute displaced comminuted intertrochanteric left hip fracture. Electronically signed by Giovani Damon 05/17/2019 12:32 PM
--- NOTE | 2019-05-17 13:19 | PROVIDER DOCUMENTATION ---
This chart was entered by Mike Centeno Scribe, acting as scribe for Galo Pérez DO. HPI-Musculoskeletal Pain/Inj - GENERAL Chief Complaint: Hip Injury Stated Complaint: FALL Time Seen by Provider: 05/17/19 11:35 Source: patient, EMS - HX OF PRESENT ILLNESS-MUSKULOSKELTAL Nature of Presenting Problem: 78 yowf presents to the ed v/a EMS , pt states feeling dizzy pt tried to catch herself while falling then fell on her left side, pt thinks she hit her head when falling. pt just left rehab Sunday for right hip fracture in january. pt states having a rossana put in her right leg. pt has been using a walker since leaving rehab. pt has a hx of vertigo. pt has a pacemaker. pt has internally rotated , shorter on left side. Quality of Pain: reports: aching Severity in ED: moderate Onset/Duration: just prior to arrival Timing: still present Modifying Factors: worse with: movement Any recent injury?: Yes (right hip fracture in january ) Locality of Occurance: Home Similar Symptoms Previously?: Yes Recently seen or treated by another doctor?: Yes (just left rehab sat for right hip fracture ) - FALL INJURY Location of Pain/Injury: reports: lower extremity (left hip) Pain Radiation: reports: no radiation Reason for Fall: reports: lightheaded Symptoms prior to fall:: reports: dizzy/lightheaded Loss of Consciousness: no loss of consciousness Injury Associated Symptoms: reports: denies symptoms - LOWER EXTREMITY PAIN/INJURY Lower Extremities Pain: hip: left Context / Method of Injury: reports: fell Associated Symptoms: reports: denies symptoms Review of Systems - Adult - REVIEW OF SYSTEMS - ADULT Constitutional: reports: no symptoms reported Eyes: reports: no symptoms reported Ears, Nose, Mouth & Throat: reports: no symptoms reported Cardiovascular: reports: no symptoms reported Respiratory: reports: no symptoms reported Gastrointestinal: reports: no symptoms reported Genitourinary: reports: no symptoms reported Musculoskeletal: reports: no symptoms reported Integumentary: reports: no symptoms reported Neurological: reports: see HPI, dizziness/vertigo, loss of balance. denies: slurred speech, syncope Psychiatric: reports: no symptoms reported Endocrine: reports: no symptoms reported Hematologic/Lymphatic: reports: no symptoms reported Allergic/Immunologic: reports: no symptoms reported All Other Systems: Reviewed and Negative Past History - Adult - PAST MEDICAL HISTORY-ADULT Review of Records: reports: Old Records Reviewed, Nursing Assessment Review, Medications Reviewed, Social history reviewed & non-contributory. Major Childhood Illnesses: reports: denies history Cardiovascular: reports: HTN, pacemaker Respiratory: reports: denies history Gastrointestinal: reports: denies history Obstetrical/Gynecological: reports: denies history Genitourinary: reports: denies history Musculoskeletal: reports: denies history Neurological: reports: other (vertigo) Endocrine/Immune: reports: denies history Other Conditions: reports: denies history - PRIOR SURGERIES/PROCEDURES Surgical/Procedure History: reports: pacemaker - IMMUNIZATION STATUS Childhood Immunizations: See Nurse Assessment Flu Vaccine: See Nurse Assessment - FAMILY HISTORY Family History: reviewed, not pertinent - SOCIAL HISTORY Smoking: non-smoker Substance Use: denies Living Situation: alone Physical Exam-Injury Related - Physical Exam-Injury Related Initial Vital Signs Reviewed: Yes General Appearance: alert, moderate distress. negative: lethargic, slow to respond Eyes: PERRL/EOMI Head, Ears, Nose, Mouth & Throat: moist mucous membranes Neck: supple Respiratory: chest non-tender, lungs clear, normal breath sounds Cardiovascular: normal peripheral pulses, regular rate, rhythm Chest/Breast: deferred Abdominal Exam: normal bowel sounds, non tender, soft Female Genitalia/Pelvic Exam: deferred Rectal Exam: deferred Lymphatic: no adenopathy Back Exam: no CVA tenderness Integumentary: normal color Neurologic: grossly normal Psych/Mental Status: normal mood/affect, normal thought content, normal thought process, oriented x 3 - Glascow Coma Score Best Eye Response (Rohwer): (4) open spontaneously Best Verbal Response (Ana): (5) oriented Best Motor Response (Rohwer): (6) obeys commands Ana Total: 15 Progress - PLAN OF CARE/RESULTS Progress/Plan/Lab Results: Vital Signs - 8 hr 05/17/19 11:44 Temperature 98.3 F Pulse Rate 78 Respiratory Rate 21 Blood Pressure 180/92 O2 Sat by Pulse Oximetry 98 Orders Category Date Time Status XRAY PELVIS W/HIP 2-3VW LT [RAD] Stat Exams 05/17/19 11:49 Completed CBC WITH ELECTRONIC DIFF [HEME] Stat Lab 05/17/19 12:49 Uncollected COMPREHENSIVE METABOLIC PANEL [CHEM] Stat Lab 05/17/19 12:49 Ordered Hydromorphone [Dilaudid] Med 05/17/19 11:45 Discontinued 1 mg IV NOW ONE EKG [EKG] Stat Ther 05/17/19 12:49 Ordered - XRAY 1 XRAY Study: Pelvis, Hip Impression: See EMR Report (XRAY PELVIS W/HIP 2-3VW LT - 05/17/2019 INDICATION: fall/ L hip pain TECHNIQUE: Three views COMPARISON: 02/16/2019 FINDINGS: There is a displaced intertrochanteric right hip fracture with a femoral neck stabilization rossana. There is some new bone formation and bony bridging at the intertrochanteric fracture line. There is a new impacted comminuted displaced left intertrochanteric hip fracture. No dislocation. IMPRESSION: Acute displaced comminuted intertrochanteric left hip fracture. Electronically signed by Giovani Damon 05/17/2019 12:32 PM 05/17/19 1232 Interpreting Physician: Giovani Damon MD Dictated Date/Time: 05/17/19 1231 cc: Galo Pérez DO; Mundo Oleary MD) - CONSULTS/PCP/HOSPITALIST Notification #1 *Consult/PCP/Hospitalist*: Dr. Palomo Time Discussed: 12:52 (states admit to hospitalist for consult) #2 Consult: Hospitalists [facility] Time Discussed: 13:00 (will come see pt ) Departure - Departure Date of Disposition Decision: 05/17/19 Time of Disposition Decision: 13:18 DIAGNOSIS: Hip fracture, left Disposition: ADMITTED INPATIENT 09 Certified Medical Emergency: Emergent Condition: Stable Referrals and Follow-Ups: Mundo Oleary MD [Primary Care Provider] - - Critical Care Note This patient required my direct & personal management of CC.: No Attestation - Physician/ TRAVON Attestation Patient care was provided by Advanced Practice Provider:: No The physician spent face to face time with patient:: Yes Advanced Practice Provider documentation review:: Supervising physician onsite and consulted in the evaluation and care of this patient. The physician did have a face to face encounter with the patient. This chart was documented by the indicated scribe, (Mike Centeno Scribe) and accurately reflects the services I performed and decisions made by , Elisa,Galo E., DO, as attested by the provider's signature.
[2019-05-17 13:36] LABS: BASO# 0.02 X1000 (0.0-0.2); BASO% 0.2 % (0.0-0.8); EOS# 0.09 X1000 (0.0-0.7); EOS% 0.8 % (0.0-10.0); HEMATOCRIT 38.9 % (37.0-47.0); HEMOGLOBIN 12.8 g/dL (12.0-16.0); IMM GRAN# 0.04 X1000 (0.0-0.04); IMM GRAN% 0.4 % (0.0-0.5); LYMPH# 1.45 X1000 (1.2-3.4); MCH 29.2 PG (27-31); MCHC 32.9 g/dL (33-37); MCV 88.6 FL (81-99); MONO# 0.95 X1000 (0.11-0.59); MONO% 8.5 % (1.7-9.3); MPV 8.6 FL (7.4-10.4); NEUT# 8.58 X1000 (1.4-6.5); NEUT% 77.1 % (42.2-75.2); PLT 390 X1000 (130-400); RBC 4.39 XMIL (4.2-5.4); RDW 13.2 % (11.5-14.5); WBC 11.13 X1000 (4.8-10.8)
[2019-05-17 14:10] LABS: AGAP 11; BUN 14 mg/dL (8-22); CHLORIDE 106 mmol/L (98-107); COSMO 281; GLUCOSE 111 mg/dL (70-104); POTASSIUM 4.3 mmol/L (3.5-5.1); SODIUM 140 mmol/L (136-145); TCO2 23 mmol/L (25-35)
[2019-05-17 14:11] LABS: ALB/GLOB RATIO 1.5; ALBUMIN 4.1 g/dL (3.5-5.0); ALKALINE PHOSPHATASE 113 U/L (32-104); CREATININE 0.7 mg/dL (0.5-0.9); ESTIMATED GFR > 60; GOT 21 U/L (10-30); GPT 15 U/L (10-36); TOTAL BILIRUBIN 0.36 mg/dL (0.20-1.00); TOTAL PROTEIN 6.9 g/dL (6.3-8.3)
[2019-05-17 14:57] LABS: INR 1.1; PROTIME 14.4 Seconds (11.0-16.0)
[2019-05-17 14:58] LABS: PTT 34.3 Seconds (22.3-41.8)
[2019-05-17] MEDS ORDERED: ZOFRAN IV PRN (14:58)
[2019-05-17] MEDS ORDERED: MORPHINE IV PRN (14:58)
--- NOTE | 2019-05-17 15:35 | HISTORY AND PHYSICAL ---
CHIEF COMPLAINT: Fall with left hip pain. HISTORY OF PRESENT ILLNESS: Ms. Mattson is a 78-year-old female who recently underwent a right intertrochanteric nail fixation of the right hip by Dr. Palomo. She went to rehab and has been home about 2 weeks from rehab. Others: Nonischemic dilated cardiomyopathy, status post biventricular implantable cardio defibrillator, her EF is now 60%, hypertension, osteoarthritis, GERD, recurrent episodes of vertigo, recent stressors with the loss of her while she was in rehab. She reports she was getting up out of her lift chair today and was reaching for something either on or over the couch and she just fell. She did not hit her head. There was no loss of consciousness. She had immediate left hip pain. She was brought into the ED where imaging revealed an acute displaced communicated intertrochanteric left hip fracture. Laboratory data is essentially unremarkable. She will be admitted to the surgical telemetry floor with an orthopedic consult again with Dr. Palomo. PAST MEDICAL HISTORY: 1. Nonischemic dilated cardiomyopathy, status post biventricular implantable device. 2. Hypertension. 3. Recurrent vertigo. 4. Osteoarthritis. 5. Tachyarrhythmia. 6. GERD. PAST SURGICAL HISTORY: 1. Right hip nailing by Dr. Palomo in January 2019. 2. Appendectomy. 3. Back surgery. 4. Pacemaker implantation. MEDICATIONS: Home medications are currently being compiled. ALLERGIES: Sulfa causes hives. SOCIAL HISTORY: She is a recent . She lives at home alone. There is no alcohol, tobacco, or illicit drug use. REVIEW OF SYSTEMS: Unremarkable except for those mentioned in HPI. She denies any headache, fever, chills, cough, nausea, vomiting, diarrhea, chest pain, palpitations, shortness of breath. Normal bowel movements. No dysuria or urinary frequency. PHYSICAL EXAMINATION: VITAL SIGNS: Temperature is 98.3 degrees, heart rate 78, respirations 21, blood pressure 180/92, O2 is 98% on room air. GENERAL: Ms. Mattson is a pleasant 78-year-old female who is lying on the stretcher in no acute distress. HEENT: Atraumatic, normocephalic. PERRL. NECK: Supple. Trachea midline. CARDIOVASCULAR: S1, S2 appreciated. No murmurs, gallops, rubs noted. RESPIRATORY: Lung sounds clear bilaterally. GI: Soft, nontender, nondistended. Positive bowel sounds 4 quadrants. LOWER EXTREMITIES: Bilateral pedal pulses are bounding. She does have a shorter left lower extremity I believe with external rotation. NEUROLOGIC: No focal deficits noted. DIAGNOSTIC DATA: Hip pelvis x-ray: Acute displaced communicated intertrochanteric left hip fracture. LABORATORY DATA: White count 11, hemoglobin and hematocrit 12 and 38, platelet count 390,000. PT 14, INR 1.10. Sodium 148, potassium 4.3, BUN 14, creatinine 0.7. Blood glucose is 111. ASSESSMENT AND PLAN: 1. Acute displaced communicated intertrochanteric left hip fracture status post mechanical fall. We will consult Dr. Palomo with orthopedics. We will place her on strict bedrest. Insert a Diaz catheter. Continue with pain regimen. NPO after midnight. 2. History of nonischemic dilated cardiomyopathy status post defibrillator implantation with an EF of 60%. 3. Recent mechanical fall status post nailing of the right hip. 4. Recurrent vertigo. 5. Hypertension. Will continue home medications when verified. 6. Gastroesophageal reflux disease. Continue PPI when verified. 7. Osteoarthritis. 8. Recent stressors with the loss of her while she was recently in rehab. 9. Further recommendation to follow physician evaluation, laboratory and diagnostic data. Dictated by GE Viveros for Surendra Hunt MD cc: MD Issa Iraheta MD David Francis, MD
--- NOTE | 2019-05-17 15:41 | EKG Report ---
Test Performed on : 05/17/2019 1:28:47 PM Test Reason : fall/Dizzy Blood Pressure : / mmHG Vent. Rate : 070 BPM Atrial Rate : 070 BPM P-R Int : 132 ms QRS Dur : 124 ms QT Int : 440 ms P-R-T Axes : 057 -62 054 degrees QTc Int : 475 ms Normal sinus rhythm. Uhayh-Xyaycvszb-Uticj Abnormal ECG When compared with ECG of 19-FEB-2019 06:23, Mirxn-Qttctuvte-Mxjxu is now present Unconfirmed Result
[2019-05-17] MEDS ORDERED: PEPCID PO PRN (15:47)
[2019-05-17] MEDS ORDERED: MILK OF MAGNESIA PO PRN (15:47)
[2019-05-17] MEDS ORDERED: FLONASE NAS PRN (15:47)
--- NOTE | 2019-05-17 16:21 | HISTORY AND PHYSICAL ---
ADDENDUM: CHIEF COMPLAINT: Hip pain. This is a 78-year-old female who broke her right hip in January. Today if she reports kind of falling out but no syncope, although she has severe vertigo and she is due for evaluation with Dr. Jackson but that had not been completed yet and she sustained injury to her left hip this time and now has a left hip fracture intertrochanteric fracture and is being admitted as such. She does have a history of heart failure and biventricular pacing so plan will be to admit and stabilize and have Orthopedics evaluate her for open reduction, internal fixation. This is a igcx-ie-notg encounter note with Laura Farmer. She is not tachycardic. Her lungs are clear. Her left leg is foreshortened and externally rotated consistent with hip fracture. We will continue to follow closely. cc: Mundo Oleary MD
--- NOTE | 2019-05-17 19:22 | ORTHOPAEDICS CONSULTATION ---
DATE: 05/17/2019 HISTORY OF PRESENT ILLNESS: Ms. Mattson is seen status post fall with a left hip fracture. She recently underwent a right hip fixation several months ago by myself. She reportedly fell this morning and was admitted by the hospitalist. She complains of pain and tenderness about the left hip. PAST MEDICAL HISTORY: Significant for cardiomyopathy, hypertension, vertigo, osteoarthritis, tachycardia, and reflux. She has recently status post hip nailing of her right hip in January 2019. MEDICATIONS: As listed by her intake form. ALLERGIES: Reported to sulfa. SOCIAL HISTORY: She is recently and lives at home alone. REVIEW OF SYSTEMS: Relatively noncontributory, other than left hip pain. PHYSICAL EXAMINATION: Examination reveals tenderness with shortness and external rotation of the left hip. There is no redness or warmth. There is significant soft tissue swelling. She is motor and sensory intact. DIAGNOSTIC DATA: X-rays reviewed, show a left intertrochanteric hip fracture. ASSESSMENT: Left intertrochanteric hip fracture. PLAN: The patient was admitted by the hospitalist, and when medically stable, we will plan on surgical fixation of the hip. We will try and get that done tomorrow. Risks, benefits, and no guarantees, including loss of limb or life, damage to tendon, nerve, or blood vessel, or other imponderables were discussed. She is willing to proceed. cc: Issa Palomo MD
[2019-05-17] MEDS: MORPHINE IV PRN ×2 (19:28→22:00)
[2019-05-17] MEDS ORDERED: COREG PO SCH (21:00)
[2019-05-17] MEDS ORDERED: COLACE PO SCH (21:00)
[2019-05-17] MEDS: GLUCOSAMINE 500 MG/CHONDROITIN 400 MG PO SCH (22:02)
[2019-05-17] MEDS: TYLENOL PO PRN (23:47)
[2019-05-18] MEDS ORDERED: NS 1,000 ML IV SCH ×2 (00:01→11:30)
[2019-05-18] MEDS: MORPHINE IV PRN ×2 (03:17→06:09)
[2019-05-18 05:51] LABS: BASO# 0.02 X1000 (0.0-0.2); BASO% 0.2 % (0.0-0.8); EOS# 0.09 X1000 (0.0-0.7); EOS% 0.7 % (0.0-10.0); HEMATOCRIT 38.7 % (37.0-47.0); HEMOGLOBIN 12.8 g/dL (12.0-16.0); IMM GRAN# 0.04 X1000 (0.0-0.04); IMM GRAN% 0.3 % (0.0-0.5); LYMPH% 16.4 % (20.5-51.1); MCHC 33.1 g/dL (33-37); MCV 87.8 FL (81-99); MONO# 1.53 X1000 (0.11-0.59); MONO% 12.6 % (1.7-9.3); MPV 8.9 FL (7.4-10.4); NEUT% 69.8 % (42.2-75.2); PLT 385 X1000 (130-400); RBC 4.41 XMIL (4.2-5.4); RDW 13.3 % (11.5-14.5); WBC 12.18 X1000 (4.8-10.8)
[2019-05-18 06:21] LABS: AGAP 13; ALB/GLOB RATIO 1.1; ALBUMIN 3.9 g/dL (3.5-5.0); ALKALINE PHOSPHATASE 106 U/L (32-104); BUN 12 mg/dL (8-22); CALCIUM 8.8 mg/dL (8.8-10.2); CHLORIDE 100 mmol/L (98-107); COSMO 275; CREATININE 0.7 mg/dL (0.5-0.9); ESTIMATED GFR > 60; GLUCOSE 130 mg/dL (70-104); GOT 18 U/L (10-30); GPT 14 U/L (10-36); POTASSIUM 3.7 mmol/L (3.5-5.1); SODIUM 137 mmol/L (136-145); TCO2 24 mmol/L (25-35); TOTAL BILIRUBIN 0.78 mg/dL (0.20-1.00); TOTAL PROTEIN 7.4 g/dL (6.3-8.3)
[2019-05-18] MEDS ORDERED: KEFZOL 2 GM/D5W 2 GM/50 ML IVPB ONE (07:21)
[2019-05-18] MEDS ORDERED: SODIUM CHLORIDE 0.9% 20 ML ONE (07:22)
[2019-05-18] MEDS ORDERED: NEO-SYNEPHRINE ONE (07:22)
[2019-05-18] MEDS ORDERED: ROBINUL ONE (07:22)
[2019-05-18] MEDS ORDERED: XYLOCAINE-MPF 2% ONE (07:22)
[2019-05-18] MEDS ORDERED: FENTANYL ONE (07:25)
[2019-05-18] MEDS ORDERED: DIPRIVAN 1% ONE (07:25)
[2019-05-18] MEDS ORDERED: ZOFRAN ONE (08:27)
[2019-05-18] MEDS ORDERED: DECADRON ONE (08:27)
[2019-05-18 09:32] LABS: URINE SOURCE CATH
--- NOTE | 2019-05-18 09:40 | OPERATIVE NOTE ---
PROCEDURE DATE: 05/18/2019 PREOPERATIVE DIAGNOSIS: Left intertrochanteric hip fracture. POSTOPERATIVE DIAGNOSIS: Left intertrochanteric hip fracture. PROCEDURE PERFORMED: Trochanteric fixation nail fixation, left hip. SURGEON: Yulissa Palomo MD. ANESTHESIA: General. COMPLICATIONS: None. PROCEDURE IN DETAIL: This 78-year-old female presents for surgical fixation of a left hip fracture. Risks, benefits, and no guarantees were discussed, and she is willing to proceed. She was taken to the operating room and satisfactory anesthesia obtained. She was placed on the [place] table. A time-out was taken to confirm operative site, procedure, and patient. The left hip was reduced with gentle longitudinal traction and roughly 5 degrees of external rotation. The lateral aspect of the thigh was prepped and draped in the usual sterile fashion. After ensuring a proper time-out, a lateral incision was made proximal to the greater trochanter. TFN guide pin was advanced down the intramedullary canal through the trochanter and reamed with a 12 reamer. A 360 mm nail was selected and inserted over the guidewire. The helical blade guidewire was then placed through an accessory lateral portal using the provided guide. This was placed up the central aspect of the femoral neck and femoral head with care taken to avoid any articular penetration. The helical blade was then reamed and a 100 length helical blade inserted into the proximal femur for secure fixation. The guides were then removed and the C-arm used to verify accurate fracture reduction and hardware placement of the proximal fixation. Appropriate traction was adjusted on the leg to avoid over-lengthening and the two distal interlocking screws were placed using fluoroscopic guidance, one in the dynamic slot and one in the static slot. The C-arm was used to verify accurate placement of these as well as placement across the nail. Afterwards, the C-arm was used to verify accurate fracture reduction and hardware placement of the locked nail. The wounds were irrigated and closed with 2-0 Vicryl and skin andrea. Sterile dressings completed the closure. The patient was recovered from anesthesia and transferred to the recovery room in stable condition. No intraoperative complications were noted. Instrument count and sponge count were correct at the time of closure. cc: Issa Palomo MD
[2019-05-18 09:42] LABS: BILIRUBIN URINE NEGATIVE (NEGATIVE); BLOOD URINE NEGATIVE (NEGATIVE); COLOR YELLOW; GLUCOSE URINE NEGATIVE (NEGATIVE); KETONE URINE NEGATIVE (NEGATIVE); LEUKOCYTES URINE NEGATIVE (NEGATIVE); NITRITE URINE NEGATIVE (NEGATIVE); PH URINE 7.5; PROTEIN URINE NEGATIVE (NEGATIVE); SP GRAVITY URINE 1.015; TURBIDITY URINE CLEAR (CLEAR); UROBILINOGEN URINE NORMAL (NORMAL)
[2019-05-18 09:44] LABS: UR EPITHELIAL CELLS <10 /HPF (<10); URINE BACTERIA NEGATIVE /HPF; URINE RBC <10 /HPF (<10); URINE WBC <10 /HPF (<10)
[2019-05-18] MEDS: DILAUDID ONE ×4 (09:44→09:57)
[2019-05-18] MEDS ORDERED: MORPHINE IV PRN ×2 (10:08→11:21)
[2019-05-18] MEDS ORDERED: ZOFRAN IV PRN ×2 (10:08→11:21)
[2019-05-18] MEDS ORDERED: MILK OF MAGNESIA PO PRN ×2 (10:08→11:21)
[2019-05-18] MEDS ORDERED: HALDOL IV PRN ×2 (10:15→11:30)
[2019-05-18] MEDS ORDERED: OXY IR ONE (10:17)
[2019-05-18] MEDS ORDERED: OXY IR PO PRN (11:21)
[2019-05-18] MEDS: NS 1,000 ML IV SCH (11:22)
[2019-05-18] MEDS ORDERED: TYLENOL PO SCH (11:30)
[2019-05-18] MEDS: DILAUDID IV PRN ×3 (12:27→16:45)
[2019-05-18] MEDS: TYLENOL PO SCH ×3 (14:23→19:53)
[2019-05-18] MEDS: CELEXA PO SCH (14:53)
[2019-05-18] MEDS: PEPCID PO SCH (14:54)
[2019-05-18] MEDS: COENZYME Q10 PO SCH (14:59)
[2019-05-18] MEDS: FERROUS SULFATE PO SCH (14:59)
[2019-05-18] MEDS: TOPROL XL PO SCH (15:00)
[2019-05-18] MEDS: PRINIVIL PO SCH (15:00)
[2019-05-18] MEDS: PHOSLO PO SCH (15:00)
[2019-05-18] MEDS ORDERED: KEFZOL 1 GM/D5W 1 GM/50 ML IVPB IV SCH (16:00)
[2019-05-18] MEDS: KEFZOL 1 GM/D5W 1 GM/50 ML IVPB IV SCH ×2 (16:45→23:44)
[2019-05-18] MEDS ORDERED: LOPRESSOR PO ONE (17:22)
--- NOTE | 2019-05-18 17:38 | PROGRESS NOTE ---
DATE: 05/18/2019 SUBJECTIVE: Patient has no major complaints. OBJECTIVE: Blood pressure is 129/61, heart rate of 102, respiratory rate of 20, temperature was 98.1 degrees.Cardiovascular: Regular rate and rhythm. Pulmonary: Bilateral breath sounds clear to auscultation. GI: Soft, nontender, nondistended. Bowel sounds are positive. PROBLEM LIST: 1. Left hip fracture status post open reduction internal fixation. She is doing well post treatment. 2. History of cardiomyopathy, defibrillator also seems to be doing okay. 3. Recurrent vertigo. She has had 2 falls now and broken both of her hips. I will see if ENT can evaluate her because it is going to be a month before she can be seen and she missed her appointment because of this event. Neuro imaging per their recommendations. We will continue to monitor. DISPOSITION: Anticipate rehab when she has stabilized. cc: Surendra Hunt MD
[2019-05-18] MEDS ORDERED: COLACE PO SCH (21:00)
[2019-05-18] MEDS: GLUCOSAMINE 500 MG/CHONDROITIN 400 MG PO SCH (23:43)
[2019-05-18] MEDS: COLACE PO SCH (23:43)
[2019-05-18] MEDS: PERIDEX MT SCH (23:43)
[2019-05-19] MEDS: DILAUDID IV PRN ×3 (02:10→14:15)
[2019-05-19 06:13] LABS: AGAP 10; BUN 15 mg/dL (8-22); CALCIUM 8.2 mg/dL (8.8-10.2); CHLORIDE 104 mmol/L (98-107); COSMO 278; CREATININE 0.7 mg/dL (0.5-0.9); ESTIMATED GFR > 60; GLUCOSE 133 mg/dL (70-104); POTASSIUM 3.8 mmol/L (3.5-5.1); SODIUM 138 mmol/L (136-145); TCO2 24 mmol/L (25-35)
[2019-05-19] MEDS: TYLENOL PO SCH ×3 (07:02→23:00)
[2019-05-19] MEDS: XARELTO PO SCH (07:02)
--- NOTE | 2019-05-19 07:33 | ORTHOPAEDICS PROGRESS NOTE ---
DATE: 05/19/2019 Ms. Mattson is seen status post TFN fixation of her hip. She is awake and alert and reasonably comfortable at this time. Vital signs are stable. Will plan on mobilizing her today. She can be transferred to rehab later this week. Will check on her again tomorrow. Will discontinue the Diaz after she mobilizes today. cc: Issa Palomo MD
[2019-05-19] MEDS ORDERED: FERROUS SULFATE PO SCH ×2 (08:00)
[2019-05-19 08:05] LABS: HEMATOCRIT 30.3 % (37.0-47.0); HEMOGLOBIN 9.6 g/dL (12.0-16.0)
[2019-05-19] MEDS: COENZYME Q10 PO SCH (11:22)
[2019-05-19] MEDS: PRINIVIL PO SCH (11:22)
[2019-05-19] MEDS: TOPROL XL PO SCH (11:22)
[2019-05-19] MEDS: OXY IR PO PRN ×2 (11:22→20:58)
[2019-05-19] MEDS: PERIDEX MT SCH ×2 (11:23→20:59)
[2019-05-19] MEDS: PEPCID PO SCH (11:23)
[2019-05-19] MEDS: PHOSLO PO SCH (11:23)
[2019-05-19] MEDS: FERROUS SULFATE PO SCH (11:23)
[2019-05-19] MEDS: CELEXA PO SCH (11:24)
[2019-05-19] MEDS: KEFZOL 1 GM/D5W 1 GM/50 ML IVPB IV SCH (11:32)
[2019-05-19] MEDS: NS 1,000 ML IV SCH ×2 (11:36→11:37)
[2019-05-19] MEDS ORDERED: ZANAFLEX PO PRN (15:08)
--- NOTE | 2019-05-19 15:26 | PROGRESS NOTE ---
DATE: 05/19/2019 SUBJECTIVE: Patient complaining of cramping and spasms. She has taken medications for this before. OBJECTIVE: Blood pressure is 110/53, heart rate of 87, respiratory rate 18, temperature 98.5 degrees, 99% on room air.Cardiovascular: Regular rate and rhythm. Pulmonary: Bilateral breath sounds clear to auscultation. Abdomen: Soft, nontender, nondistended. Bowel sounds are positive. LABORATORY DATA: White count, none today. Hemoglobin and hematocrit is 9 and 30. Platelets are stable. PROBLEM LIST: 1. Left hip fracture status post open reduction internal fixation postop day 1. She is doing better. 2. History of cardiomyopathy status post defibrillator. We will continue her regular medications. 3. Recurrent vertigo. I did consult ENT. I have not seen an note yet. There may be very significant limitations in what can be evaluated as an inpatient with a recent hip fracture, but I discussed with the family that we could get ENT input and we will see how things go. DISPOSITION: Anticipate rehab soon, hopefully in the next couple of days. We will add Zanaflex for spasms. cc: Surendra Hunt MD
--- NOTE | 2019-05-19 15:38 | Diag Imaging Result Doc PS360 ---
EXAM: CHEST-1 VIEW 05/19/2019 HISTORY: rehab TECHNIQUE: AP portable upright at 1513 COMMENT: There is no evidence of acute cardiac or pulmonary disease. Compared to 02/16/2019 there has been no significant change. IMPRESSION: No evidence of acute disease. Electronically signed by Eduin Aguilar 05/19/2019 3:35 PM
--- NOTE | 2019-05-19 18:27 | CONSULTATION ---
DATE OF CONSULTATION: 05/19/2019 I was asked to see this patient by Dr. Hunt regarding vertigo. The patient was admitted 3 days ago after a fall, sustaining a hip fracture. She has undergone surgical stabilization for this. Ms. Mattson and her daughter are both sources of her history. Ms. Mattson has had longstanding history of intermittent vertigo. May have several times a week. Usually position related. She states she has vertigo if rolling to the side, specifically the left. No real aural fullness or pressure. Has ringing in the left ear, but no roaring. She has apparently had Gideon maneuvers performed in the past for her positional vertigo, though always with a recurrence. She denies recent change in hearing. PAST MEDICAL HISTORY: Reviewed. SOCIAL HISTORY: Reviewed. FAMILY HISTORY: Reviewed. REVIEW OF SYSTEMS: Noted. IMPRESSION: Probable benign positional and peripheral vertigo, though this has been only temporarily improved with Gideon maneuvers. PLAN: Have discussed with Ms. Mattson and her daughter would like a full vestibular testing battery, as she has had incomplete resolution with Gideon maneuvers. It could be that she has lateral semicircular canal involvement. Also, Mnire disease can cause position symptoms. Unfortunately, [facility] and is not a candidate for an Gideon maneuver at this time. I have discussed with family upon approaching discharge from [facility], they will call and set up an appointment at our office for evaluation. I have told them that at the [facility] if she becomes a candidate for an Gideon maneuver as she becomes more mobile, they may be able to perform this in that setting, but if not, we certainly will plan to see her after discharge. Daughter knows to call our office at any time during rehabilitation hospitalization if she has any questions about how her mom is doing. cc: Nelson Katz MD
[2019-05-19] MEDS: GLUCOSAMINE 500 MG/CHONDROITIN 400 MG PO SCH (20:58)
[2019-05-19] MEDS: COLACE PO SCH (20:58)
[2019-05-20] MEDS: NS 1,000 ML IV SCH (02:56)
[2019-05-20 05:44] LABS: HEMATOCRIT 26.5 % (37.0-47.0); HEMOGLOBIN 8.3 g/dL (12.0-16.0)
[2019-05-20 05:57] LABS: AGAP 11; BUN 15 mg/dL (8-22); CALCIUM 7.9 mg/dL (8.8-10.2); CHLORIDE 105 mmol/L (98-107); COSMO 277; CREATININE 0.6 mg/dL (0.5-0.9); ESTIMATED GFR > 60; GLUCOSE 114 mg/dL (70-104); POTASSIUM 3.7 mmol/L (3.5-5.1); SODIUM 138 mmol/L (136-145); TCO2 22 mmol/L (25-35)
[2019-05-20] MEDS: TYLENOL PO SCH ×2 (06:38→14:48)
[2019-05-20] MEDS: XARELTO PO SCH (06:38)
[2019-05-20] MEDS: PEPCID PO SCH (10:50)
[2019-05-20] MEDS: COENZYME Q10 PO SCH (10:50)
[2019-05-20] MEDS: FERROUS SULFATE PO SCH (10:50)
[2019-05-20] MEDS: PHOSLO PO SCH (10:50)
[2019-05-20] MEDS: CELEXA PO SCH (10:50)
[2019-05-20] MEDS: PERIDEX MT SCH ×2 (10:51→21:02)
[2019-05-20] MEDS: TOPROL XL PO SCH ×2 (10:53→14:50)
--- NOTE | 2019-05-20 13:35 | PROGRESS NOTE ---
DATE: 05/20/2019 SUBJECTIVE: Ms. Mattson is seen status post surgical fixation of her hip. At the present time, she is stable. Her bandages over incisions are clean and dry. She can be mobilized, touchdown to partial weightbearing on the left side and full weightbearing on the right. She can be transferred to rehab center when there is a bed available. Will be available as needed during the remainder of her hospital stay, and plan on seeing her in roughly 2 to 4 weeks for followup x-rays and staple removal if needed. cc: Issa Palomo MD
[2019-05-20] MEDS: PRINIVIL PO SCH (14:49)
--- NOTE | 2019-05-20 17:48 | PROGRESS NOTE ---
DATE: 05/20/2019 SUBJECTIVE: The patient is doing well. No major complaints. OBJECTIVE: Blood pressure is 123/53, heart rate of 80, respiratory rate 16, temperature 98.5 degrees, 96% on room air.Cardiovascular: Regular rate and rhythm. Pulmonary: Bilateral breath sounds clear to auscultation. Gastrointestinal: Soft, nontender, nondistended. Bowel sounds were positive. DIAGNOSTIC STUDIES: Hemoglobin 8, hematocrit 26. Basic was normal. PROBLEM LIST: 1. Left hip fracture status post open reduction, internal fixation, postoperative day 2. She is doing better. Continue with PT, pain control. Orthopedics following closely. 2. History of cardiomyopathy. She is stable on her current medications. 3. Recurrent vertigo. I appreciate Dr. Katz's input. Unfortunately, we are really kind of limited because of being an inpatient. We will make sure she has close ENT follow-up. DISPOSITION: I think patient is rehabilitation ready when stable. Hopefully we will know something soon. She did have an episode of agitation and kind of confusion last night, but we think that was probably related to Zanaflex that she had been on previously. We will continue to follow closely. cc: Surendra Hunt MD
[2019-05-20] MEDS: COLACE PO SCH (21:02)
[2019-05-20] MEDS: GLUCOSAMINE 500 MG/CHONDROITIN 400 MG PO SCH (22:30)
[2019-05-20] MEDS: MIRALAX PO SCH (22:30)
[2019-05-21] MEDS: NS 1,000 ML IV SCH (01:31)
[2019-05-21 05:59] LABS: HEMATOCRIT 30.2 % (37.0-47.0); HEMOGLOBIN 9.6 g/dL (12.0-16.0)
[2019-05-21 06:23] LABS: AGAP 13; BUN 11 mg/dL (8-22); CALCIUM 8.5 mg/dL (8.8-10.2); CHLORIDE 101 mmol/L (98-107); COSMO 275; CREATININE 0.6 mg/dL (0.5-0.9); ESTIMATED GFR > 60; GLUCOSE 102 mg/dL (70-104); POTASSIUM 3.6 mmol/L (3.5-5.1); SODIUM 138 mmol/L (136-145); TCO2 24 mmol/L (25-35)
[2019-05-21] MEDS: XARELTO PO SCH (06:56)
[2019-05-21] MEDS: TYLENOL PO PRN ×3 (06:56→23:54)
[2019-05-21] MEDS: COENZYME Q10 PO SCH (09:04)
[2019-05-21] MEDS: CELEXA PO SCH (09:05)
[2019-05-21] MEDS: MIRALAX PO SCH ×2 (09:05→21:36)
[2019-05-21] MEDS: PRINIVIL PO SCH (09:05)
[2019-05-21] MEDS: FERROUS SULFATE PO SCH (09:05)
[2019-05-21] MEDS: TUMS PO SCH (09:05)
[2019-05-21] MEDS: TOPROL XL PO SCH (09:05)
[2019-05-21] MEDS: PEPCID PO SCH (09:05)
[2019-05-21] MEDS: PERIDEX MT SCH ×2 (09:05→21:36)
[2019-05-21] MEDS ORDERED: RISPERDAL M-TAB PO PRN (18:13)
--- NOTE | 2019-05-21 19:25 | PROGRESS NOTE ---
DATE: 05/21/2019 SUBJECTIVE: Patient has no major complaints. OBJECTIVE: Blood pressure is 140/55, heart rate 75, respiratory rate 16, temperature 98.5 degrees.Cardiovascular: Regular rate and rhythm. Pulmonary: Bilateral breath sounds. Clear to auscultation. Gastrointestinal: Soft, nontender, nondistended. Bowel sounds are positive. LABORATORY DATA: Hemoglobin and hematocrit is 9 and 30. PROBLEM LIST: 1. Left hip fracture, status post open reduction, internal fixation postoperative day 3. She is doing well. 2. Cardiomyopathy. Stable on current medications. 3. Recurrent vertigo. She is going to follow up with Dr. Katz after rehab. 4. Sundowning, possible early dementia. We will continue to follow. According to the daughter, she had issues last night, and that was after stopping her oxycodone and her Zanaflex. So, this probably is not a drug reaction. I am suspicious she has early dementia and has sundowning. Apparently, the family has gone through this before. They are requesting a neurology evaluation if possible. So, we will do that and see how she does, but I think she is stable for discharge to rehab tomorrow. cc: Surendra Hunt MD
--- NOTE | 2019-05-21 20:19 | Diag Imaging Result Doc PS360 ---
EXAM: CT HEAD W/O CONTRAST HISTORY: encephalopathy TECHNIQUE: CT head without contrast COMPARISON: 02/16/2019 FINDINGS: No parenchymal hemorrhage. No epidural or subdural hematoma. No subarachnoid hemorrhage. No mass identified on this noncontrasted exam. Old right lacunar infarct is unchanged. No hydrocephalus. No sinus opacification. IMPRESSION: No hemorrhage. No acute abnormality. This exam was performed using automated exposure control, adjustment of mA or kV according to patient size, and/or use of iterative reconstruction technique. Electronically signed by Nolan Bauer 05/21/2019 8:17 PM
[2019-05-21] MEDS ORDERED: CELEXA PO SCH (21:00)
[2019-05-21] MEDS: COLACE PO SCH (21:37)
[2019-05-21] MEDS: GLUCOSAMINE 500 MG/CHONDROITIN 400 MG PO SCH (21:37)
[2019-05-22] MEDS: FERROUS SULFATE PO SCH (08:52)
[2019-05-22] MEDS: XARELTO PO SCH (08:52)
[2019-05-22] MEDS: PERIDEX MT SCH (08:52)
[2019-05-22] MEDS: PRINIVIL PO SCH (08:52)
[2019-05-22] MEDS: COENZYME Q10 PO SCH (08:53)
[2019-05-22] MEDS: PEPCID PO SCH (08:53)
[2019-05-22] MEDS: TUMS PO SCH (08:53)
[2019-05-22] MEDS: TOPROL XL PO SCH (08:53)
--- NOTE | 2019-05-22 10:52 | DISCHARGE SUMMARY ---
ADMISSION DATE: 05/17/2019 DISCHARGE DATE: 05/22/2019 PRIMARY CARE PHYSICIAN: Dr. Mundo Oleary. CONSULTATIONS: With Orthopedics and ENT. ADMISSION DIAGNOSES: 1. An acute displaced communicated intertrochanteric left hip fracture status post mechanical fall. 2. History of nonischemic dilated myopathy, status post defibrillator implantation with an ejection fraction of 60%. 3. A recent mechanical fall status post nailing of the right hip. 4. Recurrent vertigo. 5. Hypertension. 6. Gastroesophageal reflux disease. 7. Osteoarthritis. DISCHARGE DIAGNOSES: 1. Left hip fracture status post open reduction internal fixation. 2. Cardiomyopathy. 3. Recurrent vertigo. 4. Some sundowning with possible early dementia. SUMMARY OF FINDINGS: This is a 78-year-old female, who recently underwent a right intertrochanteric nail fixation of the right hip by Dr. Palomo, went to rehab and had been home from rehab about 2 weeks. Reports that she was getting out of her lift chair and was reaching for something on the couch and just fell. Did not hit her head. No loss of consciousness, but had immediate pain to her left hip. She came to the ED where she was found to have an acute displaced communicated intertrochanteric left hip fracture, so she was admitted, and had repair of her hip on 05/18/2019. We consulted ENT on 05/19 for her recurrent vertigo. He felt that she is not a candidate for an Gideon maneuver at this time. Once she is discharged from rehab, they can call and set up an appointment with ENT for further evaluation. She has been followed by physical therapy and did well, and it is now felt that she can safely be discharged to rehab today. DISCHARGE MEDICATIONS: Celexa 20 mg p.o. at bedtime, Colace 200 mg p.o. at bedtime, famotidine 40 mg p.o. daily, ferrous sulfate 325 mg p.o. with breakfast, Flonase 2 sprays nasally daily p.r.n., Cosamin DS tablet 1 p.o. at bedtime, lisinopril 10 mg p.o. daily, metoprolol 100 mg 2 tablets p.o. daily, Xarelto 10 mg p.o. every 24 hours, Co-Q 10 200 mg p.o. daily, aspirin 81 mg 2 tablets p.o. daily, calcium 667 mg three tablets p.o. daily, cyclobenzaprine 10 mg p.o. daily, milk of magnesia 30 mL p.o. daily p.r.n., meclizine 12.5 to 25 mg p.o. t.i.d. p.r.n. FOLLOWUP: She will follow up with her primary care physician once her rehab stay is completed. She will also follow up with Orthopedics once rehab is completed, and again they can call and make an appointment with ENT if her vertigo has not improved for the Gideon maneuver. TIME SPENT: This is a 35 minute discharge. Dictated by GE Arvizu for Surendra Hunt MD cc: GE Arvizu MD David Francis, MD John R. Riehl, MD
[2019-05-22 12:32] VITALS: BP 143/65
--- NOTE | 2019-05-22 12:41 | PROGRESS NOTE ---
DATE: 05/22/2019 ADDENDUM: The patient is doing okay. I do not think she had any other issues, but then the family says after Dr. Prasad's evaluation today, she started having kind of a memory lapse issue, so at this point, we are going to continue to follow closely. She is stable for rehab which she is going to go today. We will continue regular medicines. She does not want any narcotic medicines. I did add some p.r.n. trazodone just as an as-needed sleep aid if required, and we will see how she does. DISPOSITION: I think she is going to be transferred to rehab at [facility] today. Please see full note. This is a concurrent note with Kinjal Figueroa. TIME SPENT: 32 minute discharge. cc: Surendra Hunt MD
[2019-05-22] MEDS: MIRALAX PO SCH (13:08)
--- NOTE | 2019-05-22 14:21 | CONSULTATION ---
DATE OF CONSULTATION: 05/22/2019 Ms. Mattson is 78 years old and she has had some forgetfulness, hallucinations, increased confusion during this hospitalization. History from family is that she has had a little bit of forgetfulness in recent months but that has never been prominent. Her recently and family thought she would be fine continuing to live alone. She has had some unsteady gait and a few falls. She had a broken right lower leg, probably tibia, 19 or 20 years ago and recovered well, and, according to family, she was walking without a limp. She had some back problems and was a little bit more stooped in recent years. Family does not report definite apraxia. She has had more frequent falling in recent months. She fell 3 times in a period of a few weeks. At least once or twice, she may have struck her head but there was never altered consciousness or altered awareness. She was admitted this time, several days ago, with a left hip fracture which was managed surgically. She has done well from a surgical standpoint. Family has reported increased confusion, particularly at night. She has had some hallucinations, mostly formed hallucinations, seeing people, mostly strangers. There was not clear history of auditory component to the hallucination. She does not use ethanol or benzodiazepine. There has never been diagnosed stroke or seizure. There is no history of other neurologic event. She believes adding citalopram was the only recent medication change. She has not recently stopped a sedative medication. The home medication list for this admission includes cyclobenzaprine which she has taken occasionally for many years, citalopram as above, nothing else with likely TRAINING FACILITATOR activity. Lab shows some mildly elevated blood sugars and nothing else remarkable. She has been afebrile. She has had some ups and downs with heart rate and blood pressures. On exam, she is awake, alert, attentive. She seems appropriate. Speech is not dysarthric. Language function is intact on bedside testing. Recent and remote memory are good. She scored 28 of 30 on bedside cognitive testing. She registered 3 items and recalled 2 of 3 items easily at 10 minutes. She picked the third item quickly with a single hint. She made some mistakes with serial sevens. She spelled "world" backward correctly with confidence. She discussed some recent news with details. She was completely oriented to all parameters. Head and neck are unremarkable. Visual moya are full tested grossly. Extraocular movements are full. Facial motility is symmetric. Tongue is midline. She can hear. She has good power in the arms and in the right leg. She guards the left leg proximally but demonstrates good power distally in the left leg. Due to pain, she did an incomplete [id number] maneuver without evidence of cerebellar dysfunction bilaterally. She reports good pinprick and light touch appreciation symmetrically across the feet. Proprioception is good at the great toe MTP joint bilaterally. I did not test her gait. Reflexes are 2+ at the ankles. Plantar response is silent bilaterally. IMPRESSION: 1. Family has noticed some forgetfulness in recent months. She may have a mild cognitive impairment syndrome. She has had a lot of disruption with her hospitalizations, surgeries, rehab stay, and her 's . She did well with bedside cognitive testing today. If cognitive function deteriorates, she might be a candidate for a cholinesterase inhibitor trial and for further workup. 2. Reported agitated confusion and hallucination overnight. This may be simply "hospital psychosis" in an elderly patient with baseline forgetfulness. The report of prominent visual hallucination is more typical of medication effect. I do not see anything on the medicine list that would be a likely culprit. Since hospitalization, she has had a few doses of hydromorphone, which might be a contributor. I do not have any specific suggestion. I believe that she has risperidone and haloperidol ordered for p.r.n. if needed. I believe she may be discharged soon and she may not require further management here. 3. There seems to be history of unsteady gait. Now, findings are too antalgic to definitely say anything more certain about her gait. Family and patient do not describe features of apraxia. 4. CT evidence of right basal ganglia lacune. This appears to be chronic. There is no clinical history of stroke. I do not think this is a factor with her current problems. If she has continued gait difficulty and/or memory decline, I will be glad to see her again as an outpatient. Thanks for asking Neurology to see her here. cc: MD PEPE Salinas III
== END 2019-05-22 14:53 | DRG 481 ==
LOC: SUPCPDRO → ED 11:15 → 4N 11:16
PROVIDERS: ATTEND Internal Medicine

== ENCOUNTER 2019-11-30 14:07 | Inpatient (IN) ==
[2019-11-30] MEDS ORDERED: TYLENOL PO ONE (15:00)
[2019-11-30 15:08] LABS: BASO# 0.03 X1000 (0.0-0.2); BASO% 0.2 % (0.0-0.8); EOS# 0.05 X1000 (0.0-0.7); EOS% 0.4 % (0.0-10.0); HEMATOCRIT 41.8 % (37.0-47.0); HEMOGLOBIN 13.2 g/dL (12.0-16.0); IMM GRAN# 0.17 X1000 (0.0-0.04); IMM GRAN% 1.4 % (0.0-0.5); LYMPH# 1.66 X1000 (1.2-3.4); LYMPH% 13.7 % (20.5-51.1); MCH 28.9 PG (27-31); MCHC 31.6 g/dL (33-37); MCV 91.7 FL (81-99); MONO# 1.28 X1000 (0.11-0.59); MONO% 10.5 % (1.7-9.3); NEUT# 8.97 X1000 (1.4-6.5); NEUT% 73.8 % (42.2-75.2); PLT 355 X1000 (130-400); RBC 4.56 XMIL (4.2-5.4); RDW 14.6 % (11.5-14.5); WBC 12.16 X1000 (4.8-10.8)
--- NOTE | 2019-11-30 15:15 | PROVIDER DOCUMENTATION ---
[facility] - General Chief Complaint: Dizziness Stated Complaint: SYNCOPE Time Seen by Provider: 11/30/19 14:35 Source: patient Allergies/Adverse Reactions: Patient Allergies Allergy/AdvReac Type Severity Reaction Status Date / Time Sulfa (Sulfonamide Allergy HIVES Verified 11/30/19 14:31 Antibiotics) Home Medications: Home Medication List Medication Instructions Recorded Confirmed Last Taken Type Aspirin 1 tab PO DAILY 09/28/17 11/30/19 11/30/19 History Meclizine HCl [Antivert] 12.5 - 25 mg PO TID PRN PRN 09/28/17 11/30/19 11/30/19 History Citalopram Hydrobromide [Celexa] 40 mg PO DAILY 12/11/17 11/30/19 11/30/19 History LISINOpril [Prinivil] 10 mg PO DAILY 11/30/19 11/30/19 11/30/19 History Metoprolol Succinate E.r. [Toprol 25 mg PO DAILY 11/30/19 11/30/19 11/30/19 History Xl] - History of Present Illness -Trauma Nature of Presenting Problem: Patient with a h/o HTN, b/l hip pain s/p surgery reports hip pain worse on the left following a fall at home today. She ambulates with a walker and a wheel chair . She stood up from her recliner to walk to her walker when her feet gave up on her and she fell hitting her head( occipital area) on the ground. She reports pelvic and hip pain more on the left. Denies any POLLARD but has a mild exacerbation of her neck pain which started 3 days prior. She denies LOC and reports no other sxs Location of Pain/Injury: reports: neck, lower extremity Head Injury Location: reports: occipital Pain Radiation: reports: no radiation Quality of Pain: reports: sharp, throbbing Onset/Duration: reports: 1-3 hours ago Timing: reports: still present Loss of Consciousness: no loss of consciousness Remembers:: reports: injury, coming to hospital Modifying Factors: improves with: nothing Review of Systems - Adult - REVIEW OF SYSTEMS - ADULT Constitutional: reports: no symptoms reported Eyes: reports: no symptoms reported Ears, Nose, Mouth & Throat: reports: no symptoms reported Cardiovascular: reports: no symptoms reported Respiratory: reports: no symptoms reported Gastrointestinal: reports: no symptoms reported Genitourinary: reports: no symptoms reported Musculoskeletal: reports: see HPI Integumentary: reports: no symptoms reported Neurological: reports: no symptoms reported Psychiatric: reports: no symptoms reported Endocrine: reports: no symptoms reported Hematologic/Lymphatic: reports: no symptoms reported Allergic/Immunologic: reports: no symptoms reported All Other Systems: Reviewed and Negative Past History - Adult - PAST MEDICAL HISTORY-ADULT Review of Records: reports: Nursing Assessment Review, Medications Reviewed, Social history reviewed & non-contributory. Major Childhood Illnesses: reports: denies history Cardiovascular: reports: HTN, pacemaker Respiratory: reports: denies history Gastrointestinal: reports: denies history Obstetrical/Gynecological: reports: denies history Genitourinary: reports: denies history Musculoskeletal: reports: denies history Neurological: reports: other (vertigo) Endocrine/Immune: reports: denies history Other Conditions: reports: denies history - PRIOR SURGERIES/PROCEDURES Surgical/Procedure History: reports: pacemaker - IMMUNIZATION STATUS Childhood Immunizations: See Nurse Assessment Flu Vaccine: See Nurse Assessment - FAMILY HISTORY Family History: reviewed, not pertinent - SOCIAL HISTORY Smoking: denies Substance Use: none/never Alcohol Use Frequency: never Physical Exam-Injury Related - Physical Exam-Injury Related General Appearance: appears well, alert, no apparent distress Eyes: PERRL/EOMI Head, Ears, Nose, Mouth & Throat: normocephalic/atraumatic, moist mucous memb ranes Neck: full range of motion, supple, C-spine tenderness Respiratory: chest non-tender, lungs clear, normal breath sounds Cardiovascular: regular rate, rhythm, other (has leg edema) Abdominal Exam: non tender, soft, no organomegaly Back Exam: normal inspection, no CVA tenderness Extremity: normal range of motion, non-tender Integumentary: normal color 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 Psych/Mental Status: oriented x 3 - Glascow Coma Score Best Eye Response ([place]): (4) open spontaneously Best Verbal Response ([place]): (5) oriented Best Motor Response ([place]): (6) obeys commands Progress - PLAN OF CARE/RESULTS Progress/Plan/Lab Results: Vital Signs - 8 hr 11/30/19 14:27 Temperature 97.9 F Pulse Rate 63 Respiratory Rate 18 Blood Pressure 173/68 O2 Sat by Pulse Oximetry 95 Laboratory Results - last 24 hr 11/30/19 11/30/19 11/30/19 14:47 14:47 14:47 WBC 12.16 H RBC 4.56 Hgb 13.2 Hct 41.8 MCV 91.7 MCH 28.9 MCHC 31.6 L RDW Std Deviation 14.6 H Plt Count 355 MPV 9.0 Immature Gran % (Auto) 1.4 H Neut % (Auto) 73.8 Lymph % (Auto) 13.7 L Green % (Auto) 10.5 H Eos % (Auto) 0.4 Baso % (Auto) 0.2 Immature Gran # (Auto) 0.17 H Neut # (Auto) 8.97 H Lymph # (Auto) 1.66 Green # (Auto) 1.28 H Eos # (Auto) 0.05 Baso # (Auto) 0.03 Sodium 139 Potassium 4.4 Chloride 101 Carbon Dioxide 24 L Anion Gap 14 BUN 21 Creatinine 0.8 Estimated GFR/1.73 m2 > 60 BUN/Creatinine Ratio 26 Glucose 89 Calculated Osmolality 280 Calcium 9.5 Total Bilirubin 0.45 AST 20 ALT 18 Alkaline Phosphatase 92 Troponin T High Sens 19 Total Protein 7.4 Albumin 4.4 Globulin 3.0 Albumin/Globulin Ratio 1.5 Orders Category Date Time Status Cardiac Monitoring DIRECTED Care 11/30/19 14:55 Active Finger Stick Blood Sugar (ED) DIRECTED Care 11/30/19 14:55 Active Saline Loc NOW Care 11/30/19 14:[address] HEAD/C-SPINE W/O CONTRAST [CT] Stat Exams 11/30/19 14:56 Completed XRAY HIP W/PELVIS BILAT 3-4VWS [RAD] Stat Exams 11/30/19 14:58 Completed CBC WITH ELECTRONIC DIFF [HEME] Stat Lab 11/30/19 14:47 Completed COMPREHENSIVE METABOLIC PANEL [CHEM] Stat Lab 11/30/19 14:47 Completed TROPONIN T HIGH SENSITIVITY Stat Lab 11/30/19 14:47 Completed URINALYSIS W/POSS RFLX CULT [URINALYSIS] Stat Lab 11/30/19 14:55 Uncollected Acetaminophen [Tylenol] Med 11/30/19 15:00 Discontinued 650 mg PO NOW ONE EKG [EKG] Stat Ther 11/30/19 14:55 Draft Result Diagrams: 11/30/19 14:47 11/30/19 14:47 - EKG 1 Time of EKG reading by physician:: 15:00 EKG Read and Signed by:: Lina Melendez EKG Interpretation (*Must complete 3 of following elements*): Normal Rate: 67 Rhythm: sinus [place]: left - XRAY 1 XRAY Study: Pelvis, Hip ( EXAM: XRAY HIP W/PELVIS BILAT 3-4VWS 11/30/2019 HISTORY: fall with pelvic and hip pain TECHNIQUE: AP pelvis and bilateral hips seven views COMMENT: There has been previous internal fixation of the right femur and total hip arthroplasty on the left. There are fractures of the superio r and inferior pubic rami on the right with displacement which was not the case on the previous study of 05/17/2019. There is generalized osteopenia. There is heterotopic bone formation around the left proximal femur. IMPRESSION: Fractures of the anterior pelvic ring on the right which have occurred since the previous examination of 05/17/2019. Postsurgical changes. The possibility of an occult insufficiency fracture of the right sacral wale cannot be excluded. Advise clinical correlation. Electronically signed by Eduin Aguilar 11/30/2019 4:07 PM 11/30/19 3000) 2 XRAY Study: C-Spine (degenerative changes. nothing acute) - CONSULTS/PCP/HOSPITALIST Notification #1 *Consult/PCP/Hospitalist*: Dr Bolivar Time Discussed: 17:35 Consult Disposition: Admit (accepts admission) #2 Consult: Dr Laird- Orthopedist Time Discussed: 17:20 Consult Disposition: Admit (wants hospitalist to admit patient) Departure - Departure Date of Disposition Decision: 11/30/19 Time of Disposition Decision: 17:36 DIAGNOSIS: Pelvic fracture Qualifiers: Encounter type: initial encounter Pelvic bone location: multiple parts Fracture type: closed Fracture alignment: without disruption of pelvic ring Qualified Code(s): S32.82XA - Multiple fractures of pelvis without disruption of pelvic ring, initial encounter for closed fracture Sacral fracture, closed Qualifiers: Encounter type: initial encounter Zone of sacrum fracture: unspecified portion of sacrum Qualified Code(s): S32.10XA - Unspecified fracture of sacrum, initial encounter for closed fracture Disposition: ADMITTED INPATIENT 09 Certified Medical Emergency: Emergent Condition: Stable Referrals and Follow-Ups: Mundo Oleary MD [Primary Care Provider] - - Critical Care Note This patient required my direct & personal management of CC.: No Attestation - Physician/ TRAVON Attestation Patient care was provided by Advanced Practice Provider:: No The physician spent face to face time with patient:: Yes Advanced Practice Provider documentation review:: Supervising physician onsite and consulted in the evaluation and care of this patient. The physician did have a face to face encounter with the patient.
--- NOTE | 2019-11-30 15:21 | EKG Report ---
Test Performed on : 11/30/2019 2:53:01 PM Test Reason : DIZZINESS Blood Pressure : / mmHG Vent. Rate : 067 BPM Atrial Rate : 067 BPM P-R Int : 130 ms QRS Dur : 118 ms QT Int : 446 ms P-R-T Axes : 051 -61 057 degrees QTc Int : 471 ms Normal sinus rhythm. Left axis deviation Left ventricular hypertrophy with QRS widening Possible Lateral infarct , age undetermined Inferior infarct , age undetermined Abnormal ECG When compared with ECG of 23-SEP-2019 20:17, premature ventricular complexes. are no longer present Txort-Rorbytojn-Pmdea is no longer present Unconfirmed Result
[2019-11-30 15:26] LABS: AGAP 14; ALB/GLOB RATIO 1.5; ALBUMIN 4.4 g/dL (3.5-5.0); ALKALINE PHOSPHATASE 92 U/L (32-104); BUN 21 mg/dL (8-22); CALCIUM 9.5 mg/dL (8.8-10.2); CHLORIDE 101 mmol/L (98-107); COSMO 280; CREATININE 0.8 mg/dL (0.5-0.9); ESTIMATED GFR > 60; GLUCOSE 89 mg/dL (70-104); GOT 20 U/L (10-30); GPT 18 U/L (10-36); POTASSIUM 4.4 mmol/L (3.5-5.1); SODIUM 139 mmol/L (136-145); TCO2 24 mmol/L (25-35); TOTAL BILIRUBIN 0.45 mg/dL (0.20-1.00); TOTAL PROTEIN 7.4 g/dL (6.3-8.3)
--- NOTE | 2019-11-30 16:10 | Diag Imaging Result Doc PS360 ---
EXAM: XRAY HIP W/PELVIS BILAT 3-4VWS 11/30/2019 HISTORY: fall with pelvic and hip pain TECHNIQUE: AP pelvis and bilateral hips seven views COMMENT: There has been previous internal fixation of the right femur and total hip arthroplasty on the left. There are fractures of the superior and inferior pubic rami on the right with displacement which was not the case on the previous study of 05/17/2019. There is generalized osteopenia. There is heterotopic bone formation around the left proximal femur. IMPRESSION: Fractures of the anterior pelvic ring on the right which have occurred since the previous examination of 05/17/2019. Postsurgical changes. The possibility of an occult insufficiency fracture of the right sacral wale cannot be excluded. Advise clinical correlation. Electronically signed by Eduin Aguilar 11/30/2019 4:07 PM
--- NOTE | 2019-11-30 16:24 | Diag Imaging Result Doc PS360 ---
EXAM: CT HEAD/C-SPINE W/O CONTRAST 11/30/2019 HISTORY: fall with head and c- spine injury TECHNIQUE: This exam was performed using automated exposure control, adjustment of mA or kV according to patient size, and/or use of iterative reconstruction technique. COMMENT: Head: There is no evidence of mass effect, bleed, or abnormal extra-axial fluid collection. There is mild generalized cerebral atrophy. Compared to 10/30/2019 there has been no significant change. Cervical spine: There is severe hypertrophic facet disease at the C4-5 level on the left which has not changed since 05/26/2018. There is anterior atlantoaxial joint degenerative change. There is no evidence of fracture or subluxation. There is no prevertebral soft tissue swelling. IMPRESSION: No evidence of acute disease. Electronically signed by Eduin Aguilar 11/30/2019 4:22 PM
[2019-11-30 17:59] LABS: URINE SOURCE CATH
[2019-11-30 18:02] LABS: BILIRUBIN URINE NEGATIVE (NEGATIVE); BLOOD URINE MODERATE (NEGATIVE); COLOR YELLOW; GLUCOSE URINE NEGATIVE (NEGATIVE); KETONE URINE NEGATIVE (NEGATIVE); LEUKOCYTES URINE NEGATIVE (NEGATIVE); NITRITE URINE NEGATIVE (NEGATIVE); PROTEIN URINE NEGATIVE (NEGATIVE); SP GRAVITY URINE 1.011; TURBIDITY URINE CLEAR (CLEAR); UR EPITHELIAL CELLS <10 /HPF (<10); URINE BACTERIA NEGATIVE /HPF; URINE RBC 20-40 /HPF (<10); URINE WBC <10 /HPF (<10); UROBILINOGEN URINE NORMAL (NORMAL)
[2019-11-30] MEDS ORDERED: ZOFRAN IV PRN (18:46)
[2019-11-30] MEDS: MORPHINE IV PRN ×2 (19:05→23:20)
--- NOTE | 2019-11-30 19:20 | HISTORY AND PHYSICAL ---
CHIEF COMPLAINT: Dizziness and fall. 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 Palomo including both hip surgery, she presented today and is going to be admitted, she ambulates with a walker, she apparently was trying to transfer from her recliner to her walker and apparently her feet gave up and she felt dizzy as well and she fell. She hit her occipital area on the ground and also she hit her buttock, x-ray showed a fracture of the anterior pelvic ring on the right which have occurred since the previous examination. She denies nausea, vomiting, diarrhea, constipation, chest pain, shortness of breath, nausea, vomiting, she will be admitted and she will be evaluated by Orthopedic Surgery Department. We will try to take care of her pain. We will continue with her home medications, probably this patient needs to go to a rehab center. REVIEW OF SYSTEMS: All the 14 points of review of systems were reviewed all of them negative except as per as per HPI. PAST MEDICAL HISTORY: 1. Known ischemic dilated cardiomyopathy status post biventricular implantable device. 2. Hypertension. 3. Recurrent vertigo. 4. Osteoarthritis. 5. Tachyarrhythmia. 6. GERD. PAST SURGICAL HISTORY: Hip surgery bilaterally last 1 was done last year, appendectomy, back surgery and pacemaker implantation. ALLERGIES: Sulfa drugs. SOCIAL HISTORY: No alcohol, tobacco or illicit drug use. Vital signs: Temperature 97.9 degrees, pulse 73, respiratory rate 20, blood pressure 152/92, oxygen saturation 93 on room air. HEENT: Head normocephalic, no trauma. PERRLA. Neck: Supple. No JVD, no masses. Central trachea. Chest: Clear to auscultation. Abdomen: Soft, nontender, nondistended. No hepatosplenomegaly. Extremities: No edema, no clubbing, no cyanosis. Neurologic: The patient is awake, alert, she is oriented. LABORATORY: WBC 12.1, hemoglobin 13.2, hematocrit 41.8, platelet 355,000. Sodium 139, potassium 4.4, chloride 101, bicarbonate 24, BUN 21, creatinine 0.8, glucose 89, calcium 9.5, AST 20, ALT 18, alkaline phosphatase 92, albumin 4.4. ASSESSMENT AND PLAN: 1. Dizziness with fall and right anterior pelvic ring fracture, this patient will be hospitalized in the surgical floor. Orthopedic surgery will be consulted. Probably this is going to be a nonoperative management but I will let the orthopedic surgeon to have that decision. Patient will be transferred to the surgical floor, patient will be evaluated by Orthopedic Surgery Department. We will try to control her pain. 2. Nonischemic dilated cardiomyopathy status post biventricular implantable device, continue with home medications. 3. Hypertension stable, continue with home medications as well. 4. Recurrent vertigo, aware. 5. History of osteoarthritis. 6. Gastroesophageal reflux disease. Continue with PPIs. cc: Daryn Kramer MD
[2019-12-01 06:52] LABS: BASO# 0.03 X1000 (0.0-0.2); BASO% 0.3 % (0.0-0.8); EOS% 2.6 % (0.0-10.0); HEMATOCRIT 38.8 % (37.0-47.0); HEMOGLOBIN 12.4 g/dL (12.0-16.0); IMM GRAN# 0.07 X1000 (0.0-0.04); IMM GRAN% 0.6 % (0.0-0.5); LYMPH# 1.44 X1000 (1.2-3.4); LYMPH% 12.5 % (20.5-51.1); MCH 29.5 PG (27-31); MCV 92.4 FL (81-99); MONO# 1.55 X1000 (0.11-0.59); MONO% 13.5 % (1.7-9.3); MPV 9.1 FL (7.4-10.4); NEUT# 8.11 X1000 (1.4-6.5); NEUT% 70.5 % (42.2-75.2); PLT 347 X1000 (130-400); RDW 14.9 % (11.5-14.5)
[2019-12-01 07:08] LABS: AGAP 12; BUN 24 mg/dL (8-22); CALCIUM 9.1 mg/dL (8.8-10.2); CHLORIDE 98 mmol/L (98-107); COSMO 278; CREATININE 0.9 mg/dL (0.5-0.9); ESTIMATED GFR > 60; GLUCOSE 104 mg/dL (70-104); POTASSIUM 4.6 mmol/L (3.5-5.1); SODIUM 137 mmol/L (136-145); TCO2 27 mmol/L (25-35)
--- NOTE | 2019-12-01 08:32 | ORTHOPAEDICS CONSULTATION ---
DATE: 12/01/2019 CHIEF COMPLAINT: Dizziness and fall. HISTORY OF PRESENT ILLNESS: This is a 79-year-old female who came into the emergency department for a fall and sudden hip pain. She reports that she fell and landed on the ground on her butt. CTs of the cervical spine were performed and showed no acute evidence of fracture. Hip/pelvis films showed fracture of anterior pelvic ring on the right, which has happened since last April. There is also the possibility of an occult insufficiency fracture of the right sacral ala. Orthopedics was consulted to come see the patient. REVIEW OF SYSTEMS: A 14-point review of systems was performed. Pertinent positives are listed in the HPI. PAST MEDICAL HISTORY: 1. Hypertension. 2. Vertigo. 3. 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 4. GERD. 5. Ischemic dilated cardiomyopathy. ALLERGIES: She is allergic to sulfa drugs. SOCIAL HISTORY: She denies alcohol, tobacco, or drug use. HOME MEDICATIONS: Include aspirin 81 mg daily, meclizine 25 mg t.i.d., citalopram 40 mg daily, lisinopril 10 mg at bedtime, metoprolol 25 mg daily, multivitamin daily. PHYSICAL EXAMINATION: Vital Signs: Temperature 97.7 degrees, pulse rate 65, respiratory rate 20, blood pressure 121/55, oxygen saturation 98% on room air. General: The patient is awake and alert, sitting in the hospital bed in no acute distress. HEENT: Head is atraumatic, normocephalic. Eyes are equal, round, and reactive. Neck: Supple. Respiratory: There is equal chest expansion, rise and fall. Abdomen: Soft, nontender. Extremities: Pelvis is stable. The patient can move all toes. There is good sensation to bilateral lower extremities. There is some mild tenderness to the anterior portion of the right hip. ASSESSMENT: Dizziness with fall, and right anterior pelvic ring fracture and sacral ala fracture. PLAN: At this point, there is nothing surgical to be performed. She will need to remain partial weightbearing on the right side. She needs to use her walker. Dictated by GE Enciso for Issa Palomo MD cc: GE Enciso MD
[2019-12-01] MEDS ORDERED: PRINIVIL PO SCH (09:00)
[2019-12-01] MEDS: ASPIRIN PO SCH (10:41)
[2019-12-01] MEDS: CELEXA PO SCH (10:42)
[2019-12-01] MEDS: TOPROL XL PO SCH (10:42)
[2019-12-01] MEDS: OXY IR PO PRN ×3 (10:43→22:18)
--- NOTE | 2019-12-01 13:53 | PROGRESS NOTE ---
DATE: 12/01/2019 SUBJECTIVE: This patient is lying comfortably in bed. She is complaining of pain, mostly with movement. Orthopedic surgery department evaluated this patient. There is no plan for surgery. OBJECTIVE: Vital Signs: Temperature 98.3 degrees, pulse 72, respiratory rate 16, blood pressure 121/51, oxygen saturation 99 on 2 L of nasal cannula. HEENT: Head normocephalic. No trauma. PERRLA. Neck: Supple. No JVD. No masses. Central trachea. Chest: Clear to auscultation. No wheezing. No rales. Abdomen: Soft, nontender, nondistended. No hepatosplenomegaly. Extremities: No edema, no clubbing, no cyanosis. Neurological Examination: The patient is awake and alert. She is oriented x3. No focal deficits. Laboratory: WBC 11.5, hemoglobin 12.4, hematocrit 38.8, platelets 347,000. Sodium 137, potassium 4.6, chloride 98, bicarbonate 27, BUN 24, creatinine 0.9, glucose 104, calcium 9.1. ASSESSMENT AND PLAN: 1. Right anterior pelvic ring fracture due to previous fall. Surgery department on board. No plan for surgery at this point. 2. Dizziness. This is chronic. Continue with the same management. 3. History of nonischemic dilated cardiomyopathy, status post biventricular implantable device. Continue with the same medications. 4. Hypertension, stable. 5. Recurrent vertigo, as above. 6. History of osteoarthritis, aware. 7. Gastroesophageal reflux disease. Continue proton pump inhibitors. 8. We will keep this patient one more day to try to control her pain. It was very difficult today to stand this patient up. She, so far, does not want to go to a rehab center. She wants to go home with home health and apparently there is somebody with her 16/04. If this is the case tomorrow, we will send her home if orthopedic surgery is okay. cc: Daryn Kramer MD
[2019-12-01] MEDS: METAMUCIL POWDER PACKET PO SCH (22:18)
[2019-12-01] MEDS: PRINIVIL PO SCH (22:19)
[2019-12-01] MEDS: ANTIVERT PO PRN (22:21)
[2019-12-02] MEDS: OXY IR PO PRN ×3 (05:22→20:29)
[2019-12-02] MEDS: CELEXA PO SCH (11:46)
[2019-12-02] MEDS: ASPIRIN PO SCH (11:47)
[2019-12-02] MEDS: TOPROL XL PO SCH (11:47)
--- NOTE | 2019-12-02 15:14 | PROGRESS NOTE ---
DATE: 12/02/2019 SUBJECTIVE: This patient is lying comfortably in bed. She is still complaining of pain. The plan was to send this patient today to her house, but she has decided to go to a rehab center. She is not able to do too much physical activity. OBJECTIVE: Vital Signs: Temperature 98.2 degrees, pulse 70, respiratory rate 20, blood pressure 109/55, oxygen saturation 97% on room air. HEENT: Head normocephalic. No trauma. PERRLA. Neck: Supple. No JVD. No masses. Central trachea. Chest: Clear to auscultation. No wheezing. No rales. Abdomen: Soft, nontender, nondistended. No hepatosplenomegaly. Genitourinary: She does have a Diaz catheter in place. Neurological: The patient is awake and alert. She is oriented x3. No focal deficits, but weakness. LABORATORY DATA: Lactate level 1.7. ASSESSMENT AND PLAN: 1. Right anterior pelvic ring fracture due to previous fall. Orthopedic Surgery Department on board. No plan for surgery at this point. The patient will be sent to a rehab center when able. 2. Dizziness. This is chronic. Continue home medication. 3. History of nonischemic dilated cardiomyopathy, status post biventricular implantable device. Continue with the same management. 4. Hypertension. Stable. 5. Recurrent vertigo. As above. 6. History of osteoarthritis. Aware. 7. Gastroesophageal reflux disease. Continue with proton pump inhibitors. cc: Daryn Kramer MD
[2019-12-02] MEDS: METAMUCIL POWDER PACKET PO SCH (20:26)
[2019-12-02] MEDS: PRINIVIL PO SCH (20:26)
[2019-12-02] MEDS: ANTIVERT PO PRN (20:29)
[2019-12-03 07:37] LABS: AGAP 11; BUN 26 mg/dL (8-22); CALCIUM 8.9 mg/dL (8.8-10.2); CHLORIDE 101 mmol/L (98-107); COSMO 281; CREATININE 0.8 mg/dL (0.5-0.9); ESTIMATED GFR > 60; GLUCOSE 103 mg/dL (70-104); POTASSIUM 4.6 mmol/L (3.5-5.1); SODIUM 138 mmol/L (136-145); TCO2 26 mmol/L (25-35)
--- NOTE | 2019-12-03 09:22 | ORTHOPAEDICS PROGRESS NOTE ---
DATE: 12/03/2019 Ms. Mattson is seen for follow-up of right pubic rami and sacral fractures. She can be mobilized, partial weightbearing on the right lower extremity. I will need to see her in the office in 2 weeks for followup. She can be transferred to rehab center or with home health at this point. We will be available as needed, and expect to see her in the office in 2 weeks. cc: Issa Palomo MD
[2019-12-03] MEDS: TOPROL XL PO SCH (09:29)
[2019-12-03] MEDS: CELEXA PO SCH (09:29)
[2019-12-03] MEDS: ASPIRIN PO SCH (09:29)
[2019-12-03] MEDS: OXY IR PO PRN ×2 (10:16→20:47)
--- NOTE | 2019-12-03 16:41 | PROGRESS NOTE ---
DATE: 12/03/2019 SUBJECTIVE: The patient is still complaining of pain in the inguinal area due to her fracture, especially when she moves. The plan is to send this patient to a rehab center hopefully tomorrow. OBJECTIVE: Vital Signs: Temperature 98.1 degrees, pulse 64, respiratory rate 18, blood pressure 120/58, oxygen saturation 95% on room air. HEENT: Head normocephalic. No trauma. PERRLA. Neck: Supple. No JVD. No masses. Central trachea. Chest: Clear to auscultation. No wheezing. No rales. Abdomen: Soft, nontender, nondistended. No hepatosplenomegaly. Genitourinary: Stable. She used to have a Diaz that has been removed. No hematuria. Neurological: The patient is awake, alert. She is oriented no with no deficits but weakness. LABORATORY: Sodium 138, potassium 4.6, chloride 101, bicarbonate 26, BUN 26, creatinine 0.8, glucose 103, calcium 8.9. ASSESSMENT AND PLAN: 1. Right anterior pelvic ring fracture due to a fall, orthopedic surgery department on board. No surgical intervention at this point. Pending rehab center placement. 2. Dizziness, this is chronic. Continue home medication. 3. History nonischemic dilated cardiomyopathy, status post biventricular implantable device, continue with the same management. 4. Hypertension, stable. 5. Recurrent vertigo, as per #2. 6. History of osteoarthritis. Aware. 7. Gastroesophageal reflux disease. Continue with proton pump inhibitors. 8. Pain and weakness with movement due to recent fracture. The plan is to send this patient to a rehab center this is. cc: Daryn Kramer MD
[2019-12-03] MEDS: PRINIVIL PO SCH (20:46)
[2019-12-03] MEDS: METAMUCIL POWDER PACKET PO SCH (20:46)
[2019-12-04] MEDS: OXY IR PO PRN (00:25)
[2019-12-04] MEDS: TOPROL XL PO SCH (10:31)
[2019-12-04] MEDS: CELEXA PO SCH (10:31)
[2019-12-04] MEDS: ASPIRIN PO SCH (10:31)
[2019-12-04 11:26] VITALS: BP 119/55
--- NOTE | 2019-12-04 11:32 | DISCHARGE SUMMARY ---
ADMISSION DATE: 11/30/2019 DISCHARGE DATE: DISCHARGE DIAGNOSES: 1. Right anterior pelvic ring fracture due to a fall. 2. Dizziness/vertigo, this is chronic. 3. History of nonischemic dilated cardiomyopathy, status post biventricular implantable device. 4. Hypertension. 5. History of osteoarthritis. 6. Gastroesophageal reflux disease. 7. Pain and generalized weakness due to recent fracture. HOSPITAL COURSE: A 79-year-old, female with a past medical history of nonischemic dilated cardiomyopathy, status post biventricular implantable device, hypertension, recurrent vertigo, osteoarthritis, tachycardia, GERD, status post multiple orthopedic surgeries as well by Dr. Plaomo, including both hips surgery. She presented and was admitted on 11/30/2019 due to a fall. Apparently, she was trying to transfer from her recliner to the walker and she felt a little bit dizzy and her feet gave up and she fell. She hit the occipital area on the ground and also she hit her buttocks. X-ray showed a fracture of the anterior pelvic ring on the right. She denied any nausea, vomiting, diarrhea, constipation, chest pain, shortness of breath, nausea. She was admitted and evaluated by Orthopedic Surgery Department, and they have decided to manage this patient without any kind of surgical intervention. This patient has been working with physical therapy and she will be discharged today to a rehab facility. At the moment of discharge, this patient was in a stable medical condition. Today during my physical exam, she was sitting up on the chair and she was feeling a little bit better. She is still in pain. We will try to continue with the same management since this is working. PHYSICAL EXAMINATION: Vital Signs: Temperature 97.7 degrees, pulse 62, respiratory rate 18, blood pressure 111/60, oxygen saturation 95% on room air. HEENT: Head normocephalic. No trauma. PERRLA. Neck: Supple. No JVD. No masses. Central trachea. Chest: Clear to auscultation. No wheezing. No rales. Abdomen: Soft, nontender, nondistended. No hepatosplenomegaly. Neurological: The patient is awake and alert. She is oriented x3. Extremities: No edema, no clubbing, no cyanosis. LABORATORY DATA: Laboratory from yesterday, sodium 138, potassium 4.6, chloride 101, bicarbonate 26, BUN 26, creatinine 0.8, glucose 103, calcium 8.9. DISCHARGE MEDICATIONS: 1. Aspirin 81 mg p.o. daily. 2. Calcium carbonate 600 mg p.o. at bedtime. 3. Celexa 40 mg p.o. daily. 4. Lisinopril 10 mg p.o. at bedtime. 5. Meclizine 12.5 to 25 mg p.o. t.i.d. 6. Metoprolol ER/Toprol-XL 25 mg p.o. daily. 7. Multivitamins 1 tablet p.o. daily. 8. Oxycodone IR 5 mg p.o. q.3 hours as needed for pain if the blood pressure is stable. 9. Metamucil powder packet 1 packet p.o. at bedtime as directed. Time discharging this patient: 20 minutes. cc: Daryn Kramer MD
== END 2019-12-04 13:20 | DRG 536 ==
LOC: SUPCPDRO → ED 14:07 → EDIPHOLD 18:27 → 4N 20:39
PROVIDERS: ATTEND Internal Medicine